=== PATIENT | female | born 1970 | race Caucasian/White ===

== ENCOUNTER 2016-08-27 16:02 | Outpatient (CLI) | payer MEDICAID | END 2016-08-27 16:03 | disposition home or self-care (01) | DX: M18.0 Bilateral primary osteoarthritis of first carpometacarpal joints (principal) ==

== ENCOUNTER 2016-11-26 11:14 | Day surgery (SDC) | payer MEDICAID ==
[2016-11-26] MEDS ORDERED: SODIUM CHLORIDE 0.9% 1,000 ML IV ONE ×2 (12:07)
[2016-11-26] MEDS ORDERED: MORPHINE 2 MG/ML SYRINGE IVP STA ×2 (12:18→15:20)
--- NOTE | 2016-11-26 12:21 | ED Physician Documentation ---
PD HPI ABD PAIN - Stated complaint Stated Complaint: VOMITING - Chief complaint Chief Complaint: Abd Pain - History obtained from History obtained from: Patient - History of Present Illness Timing - onset: Yesterday Timing - duration: Days (2) Timing - details: Gradual onset Pain level max: 10 Pain level now: 4 Quality: Aching, Pain Location: Epigastric, Periumbilical Radiation: Other (non-radiating) Improved by: Vomiting Worsened by: Eating Associated symptoms: Nausea, Vomiting, Vaginal dc (states thick, slight discharge. no burning. no itching). No: Fever, Diarrhea, Constipation, Melena, Hematochezia, Dysuria, Hematuria, Chest pain Recently seen: Clinic (states has been treated for several UTI's recently.) Review of Systems Ten Systems: 10 systems reviewed and negative Constitutional: denies: Fever, Chills GI: denies: Nausea, Vomiting, Diarrhea : denies: Now EGA Skin: denies: Rash Musculoskeletal: denies: Neck pain, Back pain Neurologic: denies: Headache PD PAST MEDICAL HISTORY - Past Medical History Cardiovascular: None Respiratory: None Neuro: None Endocrine/Autoimmune: None GI: GERD, Colon polyps : None HEENT: None Psych: None Musculoskeletal: Chronic back pain Derm: None - Past Surgical History Past Surgical History: Yes General: Colonoscopy 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 - Present Medications Home Medications: Ambulatory Orders Medication Instructions Recorded Confirmed Hydrochlorothiazide 25 mg PO DAILY 01/27/14 11/26/16 Omeprazole [Prilosec] 40 mg PO QDAC 01/27/14 11/26/16 Cyclobenzaprine [Flexeril] 10 mg PO TID PRN 11/26/16 11/26/16 Venlafaxine ER [Effexor ER] 225 mg PO DAILY 11/26/16 11/26/16 - Allergies Allergies/Adverse Reactions: Allergies Allergy/AdvReac Type Severity Reaction Status Date / Time Penicillins AdvReac Intermediate Hives Verified 04/06/15 18:01 Sulfa (Sulfonamide AdvReac Hives Verified 04/06/15 18:01 Antibiotics) - Social History Does the pt smoke?: Yes Smoking Status: Current every day smoker Does the pt drink ETOH?: Yes Does the pt have substance abuse?: No - Immunizations Immunizations are current?: Yes PD ED PE NORMAL - Vitals Vital signs reviewed: Yes - General General: Alert and oriented X 3, No acute distress, Well developed/nourished - HEENT HEENT: PERRL, Moist mucous membranes - Neck Neck: Supple, no meningeal sign - Cardiac Cardiac: RRR, Strong equal pulses - Respiratory Respiratory: No respiratory distress, Clear bilaterally - Abdomen Abdomen: Normal bowel sounds, Soft, Non distended, Other (TTP epigastric without peritoneal signs) - Back Back: No CVA TTP, No spinal TTP - Derm Derm: Warm and dry, No rash - Extremities Extremities: No edema, No calf tenderness / cord - Neuro Neuro: Alert and oriented X 3 - Psych Psych: Normal mood, Normal affect Results - Vitals Vitals: Vital Signs - 24 hr 11/26/16 11/26/16 11/26/16 11:23 13:34 16:56 Temperature 35.9 C L 36.8 C Heart Rate 81 72 71 Respiratory 14 16 16 Rate Blood Pressure 130/77 129/71 150/83 H O2 Saturation 100 100 99 11/26/16 11/26/16 11/26/16 18:20 18:25 18:30 Temperature Heart Rate Respiratory Rate Blood Pressure O2 Saturation 100 97 99 11/26/16 11/26/16 11/26/16 18:35 18:40 18:45 Temperature Heart Rate Respiratory Rate Blood Pressure O2 Saturation 96 14 L 95 11/26/16 11/26/16 11/26/16 18:50 18:55 19:00 Temperature Heart Rate Respiratory Rate Blood Pressure O2 Saturation 94 95 94 11/26/16 11/26/16 11/26/16 19:10 19:20 19:30 Temperature Heart Rate Respiratory Rate Blood Pressure O2 Saturation 92 94 96 11/26/16 19:40 Temperature Heart Rate Respiratory Rate Blood Pressure O2 Saturation 98 Oxygen O2 Source Room air - Labs Labs: Laboratory Tests 11/26/16 11/26/16 11/26/16 12:05 12:34 12:34 WBC 4.4 L RBC 3.92 L Hgb 12.6 Hct 36.7 L MCV 93.6 MCH 32.1 H MCHC 34.3 RDW 14.5 Plt Count 206 MPV 7.8 L Neut # 2.6 Lymph # 1.4 L [place] # 0.3 Eos # 0.0 Baso # 0.0 Absolute Nucleated RBC 0.00 Nucleated RBCs 0.1 Sodium 134 L Potassium 4.5 Chloride 105 Carbon Dioxide 23 Anion Gap 6.0 BUN 9 Creatinine 0.7 Estimated GFR (MDRD) 90 Glucose 104 H Calcium 8.7 Total Bilirubin 0.6 AST 22 ALT 20 Alkaline Phosphatase 62 Total Protein 6.8 Albumin 3.8 Globulin 3.0 Albumin/Globulin Ratio 1.3 Lipase 16 L Urine Color YELLOW Urine Clarity CLEAR Urine pH 7.5 Ur Specific [place] 1.010 Urine Protein NEGATIVE Urine Glucose (UA) NEGATIVE Urine Ketones NEGATIVE Urine Occult Blood NEGATIVE Urine Nitrite NEGATIVE Urine Bilirubin NEGATIVE Urine Urobilinogen 0.2 (NORMAL) Ur Leukocyte Esterase NEGATIVE Ur Microscopic Review NOT INDICATED Urine Culture Comments NOT INDICATED Urine HCG, Qual NEGATIVE - Rads (name of study) CT abd/pelvis Radiology: Prelim report reviewed, EMP read contemporaneously, See rad report ( Small abnormal appearing cystic structure in the expected location of appendix, most likely acute unruptured appendicitis. ) PD MEDICAL DECISION MAKING - ED course Complexity details: reviewed results, re-evaluated patient, considered differential, d/w patient ED course: Patient is a 46-year-old female who presents to the emergency department with abdominal pain, nausea. No appetite since last night. Pain started periumbilical and migrated to the right lower quadrant during her emergency department stay. On repeat evaluation she was tender at McBurney's point, therefore a CT scan of the abdomen was performed which reveals a small abnormal appearing cystic structure in the expected location of the appendix, most likely acute appendicitis. Therefore I consulted general surgery, Dr. Toney who evaluated the patient will take her to the operating room. She was treated with moxifloxacin IV. This document was made in part using voice recognition software. While efforts are made to proofread this document, sound alike and grammatical errors may occur. Departure - Departure Disposition: ED Transfer to [facility] Clinical Impression: Appendicitis Qualifiers: Appendicitis type: acute appendicitis Acute appendicitis type: with localized peritonitis Qualified Code(s): K35.3 - Acute appendicitis with localized peritonitis Condition: Stable Discharge Date/Time: 11/26/16 17:54
[2016-11-26] MEDS ORDERED: MORPHINE 2 MG/ML SYRINGE ONE ×2 (12:26→15:20)
[2016-11-26 12:27] LABS: BILIRUBIN,URINE NEGATIVE (NEGATIVE); PH,URINE 7.5 PH (5.0-7.5)
[2016-11-26 12:30] LABS: HCG UR QUAL NEGATIVE; UA CHARGE (STRIP ONLY) YES; UR CULTURE IF IND NOT INDICATED
[2016-11-26 12:41] LABS: BASOPHILS % (AUTO) 0.5 %; EOSINOPHILS % (AUTO) 0.7 %; HCT - HEMATOCRIT 36.7 % (37.0-47.0); HGB - HEMOGLOBIN 12.6 g/dL (12.0-16.0); LYMPHOCYTES # (AUTO) 1.4 10^3/uL (1.5-3.5); MEAN CORPUSCULAR HEMOGLOBIN 32.1 pg (27.0-31.0); MEAN CORPUSCULAR HGB CONC 34.3 g/dL (32.0-36.0); MEAN CORPUSCULAR VOLUME 93.6 fL (81.0-99.0); MEAN PLATELET VOLUME 7.8 fL (7.9-10.8); MONOCYTES # (AUTO) 0.3 10^3/uL (0.0-1.0); MONOCYTES % (AUTO) 7.3 %; NEUTROPHILS # (AUTO) 2.6 10^3/uL (1.5-6.6); NEUTROPHILS % (AUTO) 59.5 %; NUCLEATED RED BLOOD CELLS AUTO 0.1 /100WBC; RED BLOOD COUNT 3.92 10^6/uL (4.20-5.40); RED CELL DISTRIBUTION WIDTH 14.5 % (12.0-15.0); UNCORRECTED WHITE BLOOD COUNT 4.4 x10^3/uL; WHITE BLOOD COUNT 4.4 x10^3/uL (4.8-10.8)
[2016-11-26 13:21] LABS: ALBUMIN/GLOBULIN RATIO 1.3 (1.0-2.2); BILIRUBIN,TOTAL 0.6 mg/dL (0.2-1.0); CALCIUM 8.7 mg/dL (8.5-10.3); CREATININE 0.7 mg/dL (0.4-1.0); POTASSIUM 4.5 mmol/L (3.5-5.0); TOTAL PROTEIN 6.8 g/dL (6.7-8.2)
--- NOTE | 2016-11-26 15:39 | CT Preliminary Report ---
Exam: CT Abdomen/Pelvis W/ IMPRESSION: Small abnormal appearing cystic structure in the expected location of appendix, most like ly acute unruptured appendicitis. [facility] SITE ID: [id number]
--- NOTE | 2016-11-26 15:41 | CT Report ---
EXAM: CT ABDOMEN AND PELVIS EXAM DATE: 11/26/2016 02:50 PM. CLINICAL HISTORY: RLQ abd pain. COMPARISONS: 12/07/2011. TECHNIQUE: Routine helical CT imaging was performed through the abdomen and pelvis. IV contrast: 100 cc Isovue-300. Enteric contrast: No. Reconstructions: Coronal and sagittal. In accordance with CT protocol optimization, one or more of the following dose reduction techniques w ere utilized for this exam: automated exposure control, adjustment of mA and/or KV based on patient s ize, or use of iterative reconstructive technique. FINDINGS: Lung Bases: Unremarkable. Liver: Normal. No masses. Gallbladder/Bile Ducts: Unremarkable. Spleen: Normal. Pancreas: Normal. Adrenal Glands: Normal. Kidneys: Normal. No masses or hydronephrosis. Peritoneal Cavity/Bowel: A fluid-filled structure measuring as much as 10 mm in diameter on axial nevin ge 64 is at the expected location of appendix with a second less well-defined but similar sized struc ture adjacent to it, possibly representing abnormal appendix folded over itself; normal appendix was visible at this location in the previous study. No definite infiltration of adjacent fat. No free flu id, free air, or lymphadenopathy. Pelvic Organs: Normal. The bladder and visualized pelvic organs are within normal limits. Vasculature: No aneurysms or other significant abnormality. Bones: No significant abnormality. Other: None. IMPRESSION: Small abnormal appearing cystic structure in the expected location of appendix, most like ly acute unruptured appendicitis. [facility] Referring Provider Line: [phone] SITE ID: [id number]
[2016-11-26] MEDS ORDERED: MOXIFLOXACIN 400MG/250ML IV 250 ML IV STA (15:56)
[2016-11-26] MEDS ORDERED: LORazepam 2 MG/ML SYRINGE IVP STA (16:27)
[2016-11-26] MEDS ORDERED: LORazepam 2 MG/ML SYRINGE ONE (16:47)
[2016-11-26 16:56] VITALS: BP 150/83
[2016-11-26] MEDS ORDERED: metroNIDAZOLE 500 MG/100 ML 100 ML ONE (17:09)
[2016-11-26] MEDS ORDERED: IOPAMIDOL-300 100 ML VIAL IVP ONE (17:19)
[2016-11-26] MEDS ORDERED: BUPIVACAINE 0.5%-EPI 1:200000 PF 30 ML VIAL SUBQ ONE ×3 (17:48)
[2016-11-26] MEDS ORDERED: LACTATED RINGERS 1,000 ML IV ONE ×2 (17:48→18:44)
[2016-11-26] MEDS ORDERED: GLYCOPYRROLATE 1 MG/5 ML VIAL IVP ONE (17:56)
[2016-11-26] MEDS ORDERED: PROPOFOL 200 MG/20 ML VIAL IVP ONE (17:56)
[2016-11-26] MEDS ORDERED: KETOROLAC 30 MG/ML VIAL IVP ONE (17:56)
[2016-11-26] MEDS ORDERED: SUCCINYLCHOLINE 200 MG/10 ML VIAL IVP ONE (17:56)
[2016-11-26] MEDS ORDERED: LIDOCAINE-MPF 2% 5 ML VIAL IM ONE (17:56)
[2016-11-26] MEDS ORDERED: MIDAZOLAM 2 MG/2 ML VIAL IVP ONE (17:56)
[2016-11-26] MEDS ORDERED: DEXAMETHASONE 4 MG/ML VIAL IVP ONE (17:56)
[2016-11-26] MEDS ORDERED: ONDANSETRON 4 MG/2 ML VIAL IVP ONE (17:56)
[2016-11-26] MEDS ORDERED: fentaNYL 100 MCG/2 ML VIAL IVP ONE (17:56)
[2016-11-26] MEDS ORDERED: NEOSTIGMINE 1 MG/1 ML 10 ML MDV IVP ONE (17:56)
[2016-11-26] MEDS ORDERED: PROMETHAZINE 25 MG/1 ML VIAL ONE (18:21)
[2016-11-26] MEDS: HYDROmorphone 1 MG/ML SYRINGE ONE ×2 (18:28→18:48)
[2016-11-26] MEDS: fentaNYL 100 MCG/2 ML VIAL ONE ×2 (18:57→19:12)
[2016-11-26] MEDS ORDERED: diphenhydrAMINE INJ 50 MG/ML VIAL ONE (19:21)
[2016-11-26] MEDS ORDERED: HYDROcod/ACETAM 5/325 MG TABLET PO PRN (20:13)
[2016-11-26] MEDS ORDERED: ONDANSETRON 4 MG/2 ML VIAL IVP PRN (20:13)
[2016-11-26] MEDS ORDERED: LACTATED RINGERS 1,000 ML IV SCH (21:00)
--- NOTE | 2016-11-27 02:19 | OPERATIVE REPORT ---
DATE OF SURGERY: 11/26/2016 00:00:00 PREOPERATIVE DIAGNOSIS: Acute abdominal pain. POSTOPERATIVE DIAGNOSES 1. Abdominal pain secondary to ruptured left ovarian cyst with hemoperitoneum. 2. Right ovarian cyst. OPERATIONS PERFORMED 1. Diagnostic laparoscopy. 2. Incidental appendectomy. OPERATING SURGEON: Claudio Toney MD. ANESTHESIA: General. INDICATION FOR PROCEDURE: The patient is a 46-year-old female who presents with acute onset less than 24 hours of abdominal pain. It first started at periumbilical and then moved to the right lower quadrant. She had a CT scan of the abdomen and pelvis, which revealed a dilated appendix at 10 mm consistent with acute appendicitis. Her white blood cell count was 4. On physical exam, she had mild tenderness in right lower quadrant. FINDINGS AT SURGERY: The patient had a normal appearing appendix. The patient had bilateral ovarian cysts with stigma of recent rupture, nonbleeding left ovary. The patient's small bowel was run and there was no ligament of Treitz being present. There is a small to moderate amount of blood in the pelvis and right gutter. PROCEDURE: After informed consent was obtained, the patient was taken to the operating room and placed in the supine position. General endotracheal anesthesia was administered. The patient's abdomen was then prepped and draped in the usual sterile fashion prior to making any abdominal incisions. The skin was injected with 0.5% Marcaine. An infraumbilical incision was made in the skin using a scalpel. A 5 mm Optiview trocar was then inserted through the incision through the fascia and into the abdominal cavity. The abdomen was then insufflated. Looking inside, no injuries were noted. Two 5 mm ports were then placed in the right and left lower quadrants with the 5 mm port at the umbilicus switched to a 12 mm. Appendix appeared to be normal. The patient did have hemoperitoneum being present in the pelvis. The ovaries were looked at. She had a small ovary on the right and left side. On the left side, there was a stigmata of recent bleed, but no ongoing bleeding from the ovarian cyst. It was then decided upon to do an incidental appendectomy since it was abnormal on CT scan and to ensure no further diagnostic problems in the future. An opening was then made in the mesentery of the appendix at its base. An Endo GI was then placed across the base of the appendix stapling and dividing it. A second Endo GI was then placed across the mesentery of the appendix stapling and dividing it. The appendix was then placed in an Endo bag and removed through the umbilical port. Looking in the right lower quadrant, no bleeding was noted. The pelvis was then irrigated until the return fluid was clear. The ports were then removed and no bleeding was noted at the port sites, with the abdomen then being desufflated. The umbilica fascial defect was closed using #0 Vicryl suture. The skin incisions were closed using 4-0 Monocryl subcuticular stitch. Dermabond was then applied. The patient was then awakened, extubated, and taken from the operating room in stable condition. ESTIMATED BLOOD LOSS: Less than 5 mL. COMPLICATIONS: None. CONDITION OF THE PATIENT AT THE END OF THE PROCEDURE: Stable. SPECIMENS: Appendix. DRAINS/PACKS: None. CLASSIFICATION: The wound is clean. JOB #: [id number] EXT JOB #:[id number] NANCY
--- NOTE | 2016-11-27 08:00 | HISTORY & PHYSICAL EXAMINATION ---
DATE OF ADMISSION: 11/26/2016 REASON FOR ADMISSION: Abdominal pain. HISTORY OF PRESENT ILLNESS: This patient is a 46-year-old female who presents with less than a 24-deidra r history of abdominal pain. It first started at periumbilical and has now moved to the right lower q uadrant. She has had some nausea and vomiting. She denies any diarrhea or constipation. She denies an y fevers. Because of the pain she came to the emergency room to be evaluated. PAST SURGICAL HISTORY: 1. Tubal ligation. 2. Multiple orthopaedic surgeries of left leg. 3. Nasal sinus surgery. ALLERGIES: 1. PENICILLIN. 2. SULFA. MEDICATIONS: 1. Effexor. 2. Hydrochlorothiazide. 3. Prilosec. 4. Flexeril. SOCIAL HISTORY: The patient lives with boyfriend. FAMILY HISTORY: Noncontributory. REVIEW OF SYSTEMS: GENERAL: Not feeling well. GASTROINTESTINAL: Abdominal pain, nausea, and vomiting. GENITOURINARY: She recently just got over a urinary infection treated with antibiotics. PHYSICAL EXAMINATION: VITAL SIGNS: Temperature is 35.9, heart rate 81, blood pressure 130/77. GENERAL: The patient is lying in bed. She is cooperative and not in any distress. EYES: Anicteric. NECK: No lymphadenopathy. HEART: Regular. LUNGS: Clear. BACK: Nontender. ABDOMEN: Soft, mild tenderness in right lower quadrant. No rebound. No peritoneal signs. No hernias. EXTREMITIES: No edema or cyanosis. NEUROLOGICAL: The patient appears to be neurologically intact without any deficits. PSYCHOLOGICAL: The patient is coherent, cooperative, and appears to answer questions fully. LABS: White blood cell count of 4.4. CT scan of the abdomen and pelvis shows a dilated appendix at 10 mm consistent with appendicitis. ASSESSMENT: Acute abdomen. Clinically and radiographically the patient has appendicitis. I have recom mended she undergo a laparoscopic appendectomy and possible laparotomy. The risks and possible compli cations of the procedure have been explained to her. She accepts the risks and wishes to proceed with the procedure. PLAN: 1. The patient will be admitted to observation. 2. NPO. 3. IV fluids. 4. IV antibiotics. 5. Laparoscopic appendectomy, possible laparotomy. JOB #: [id number] EXT JOB #:[id number]
== END 2016-11-26 21:20 | disposition home or self-care (01) ==
LOC: ED 11:14 → SDS 16:30 → MS 20:21 → SDS 21:20
PROVIDERS: ATTEND Surgery
PROC: 0DTJ4ZZ Resection of Appendix, Percutaneous Endoscopic Approach (ICD-10-PCS; 2016-11-26)
PROC: 0WJJ4ZZ Inspection of Pelvic Cavity, Percutaneous Endoscopic Approach (ICD-10-PCS; principal; 2016-11-26 17:00)
DX: N83.202 Unspecified ovarian cyst, left side (principal); N83.201 Unspecified ovarian cyst, right side; K66.1 Hemoperitoneum; R93.3 Abnormal findings on diagnostic imaging of other parts of digestive tract; K21.9 Gastro-esophageal reflux disease without esophagitis; I10 Essential (primary) hypertension; G89.29 Other chronic pain; M54.9 Dorsalgia, unspecified; F17.200 Nicotine dependence, unspecified, uncomplicated; Z88.0 Allergy status to penicillin; Z88.2 Allergy status to sulfonamides
CPT/HCPCS: 36415; 44970; 74177; 80053; 81003; 81025; 83690; 85025; 99284; A9270; J1170; J2060; J7120; Q9967; 81001; 87086; 88304

== ENCOUNTER 2016-12-16 12:01 | Emergency (ER) | payer MEDICAID ==
[2016-12-16 12:12] VITALS: BP 143/89
== END 2016-12-16 14:31 | disposition left against medical advice (07) ==
LOC: ED 12:01
DX: Z53.21 Procedure and treatment not carried out due to patient leaving prior to being seen by health care provider (principal)
CPT/HCPCS: 96374; 96375; 96376; 99284

== ENCOUNTER 2016-12-16 19:28 | Emergency (ER) | payer MEDICAID ==
--- NOTE | 2016-12-16 20:08 | ED Physician Documentation ---
PD HPI ABD PAIN - Stated complaint Stated Complaint: ABD PX/NAUSEA--S/P SURGERY - Chief complaint Chief Complaint: Abd Pain - History obtained from History obtained from: Patient - History of Present Illness Timing - onset: How many days ago (2) Timing - details: Constant, Waxing and waning Pain level now: 8 Quality: Pain Location: Other (across lower abdomen, L>R) Radiation: Other (no radiation) Improved by: Laying still Worsened by: Moving, Palpation Associated symptoms: Fever (subjective (did not take temperature at home, felt like she had a fever per patient)), Nausea, Vomiting. No: Dysuria Recently seen: Surgery - Additional information Additional information: patient went for appendectomy 11/26 (and, per operative note, the appendix was removed). However, operative note indicates the appendix appeared normal and that there were findings that suggested ruptured ovarian (hemorragic) cyst. Patient presents c/o 2 days of abdominal pain, saw PMD today and, per patient, PMD recommended she come to this ED for evaluation. Patient initially was here this morning but felt it was too busy and thus went home, returns at this time with same abd. pain c/o. Patient says she has had some degree of pain since the surgery. Also past 48 hours c/o nausea, vomiting, subjective fever (feels like she's been having fevers but has not taken her temperature at home). Review of Systems Constitutional: reports: Fever (subjective), Chills, Sweats Cardiac: reports: Reviewed and negative Respiratory: reports: Reviewed and negative GI: reports: Abdominal Pain, Nausea, Vomiting. 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 - Present Medications Home Medications: Ambulatory Orders Medication Instructions Recorded Confirmed Hydrochlorothiazide 25 mg PO DAILY 01/27/14 12/16/16 Omeprazole [Prilosec] 40 mg PO DAILY 01/27/14 12/16/16 Cyclobenzaprine [Flexeril] 10 mg PO TID PRN 11/26/16 12/16/16 Venlafaxine ER [Effexor ER] 225 mg PO DAILY 11/26/16 12/16/16 oxyCODONE/ACET 5/325 [Percocet 5 1 - 2 each PO Q6H PRN #6 tablet 12/16/16 mg/325 mg] - Allergies Allergies/Adverse Reactions: Allergies Allergy/AdvReac Type Severity Reaction Status Date / Time Penicillins AdvReac Intermediate Hives Verified 12/16/16 12:12 ciprofloxacin [From Cipro] AdvReac Edema Verified 12/16/16 12:12 ciprofloxacin HCl * AdvReac Edema Verified 12/16/16 12:12 [From Cipro] Sulfa (Sulfonamide AdvReac Hives Verified 12/16/16 12:12 Antibiotics) - Social History Does the pt smoke?: Yes Smoking Status: Current every day smoker Does the pt drink ETOH?: Yes Does the pt have substance abuse?: No - Immunizations Immunizations are current?: Yes PD ED PE NORMAL - Vitals Vital signs reviewed: Yes - General General: Alert and oriented X 3, No acute distress (NAD at rest), Well developed /nourished - HEENT HEENT: Moist mucous membranes - Cardiac Cardiac: RRR, No murmur - Respiratory Respiratory: No respiratory distress, Clear bilaterally - Abdomen Abdomen: Soft - Back Back: No CVA TTP - Derm Derm: Normal color, Warm and dry - Extremities Extremities: No edema PD ED PE EXPANDED - Abdomen Abdomen: Tender to palpation (across lower abdomen, suprapubic>LLQ>RLQ. there is mild tenderness across upper abdomen, less than lower. no rebound or guarding ) Results - Vitals Vitals: Vital Signs - 24 hr 12/16/16 12/16/16 19:34 23:39 Temperature 35.8 C L 36.0 C L Heart Rate 75 63 Respiratory 20 18 Rate Blood Pressure 146/89 H 156/91 H O2 Saturation 100 99 Oxygen O2 Source Room air - Labs Labs: Laboratory Tests 12/16/16 12/16/16 12/16/16 20:39 20:39 20:40 WBC 4.2 L RBC 4.00 L Hgb 12.6 Hct 38.0 MCV 95.0 MCH 31.4 H MCHC 33.1 RDW 14.2 Plt Count 256 MPV 8.0 Neut # 1.7 Lymph # 2.0 [place] # 0.5 Eos # 0.0 Baso # 0.0 Absolute Nucleated RBC 0.00 Nucleated RBCs 0.0 Sodium 139 Potassium 3.6 Chloride 105 Carbon Dioxide 26 Anion Gap 8.0 BUN 12 Creatinine 0.8 Estimated GFR (MDRD) 77 L Glucose 117 H Calcium 9.0 Total Bilirubin 0.5 AST 30 ALT 28 Alkaline Phosphatase 70 Total Protein 6.7 Albumin 3.7 Globulin 3.0 Albumin/Globulin Ratio 1.2 Lipase 26 Urine Color YELLOW Urine Clarity CLEAR Urine pH 6.0 Ur Specific [place] <=1.005 Urine Protein NEGATIVE Urine Glucose (UA) NEGATIVE Urine Ketones NEGATIVE Urine Occult Blood TRACE-LYSE Urine Nitrite NEGATIVE Urine Bilirubin NEGATIVE Urine Urobilinogen 0.2 (NORMAL) Ur Leukocyte Esterase NEGATIVE Ur Microscopic Review NOT INDICATED Urine Culture Comments NOT INDICATED - Rads (name of study) CT A/P Radiology: Prelim report reviewed, See rad report PD MEDICAL DECISION MAKING - ED course Complexity details: reviewed results, re-evaluated patient, considered differential, d/w patient Departure - Departure Disposition: 01 Home, Self Care Clinical Impression: Abdominal pain Condition: Good Instructions: ED Abdominal Pain Unkn Cause Prescriptions: oxyCODONE/ACET 5/325 [Percocet 5 mg/325 mg] 1 - 2 each PO Q6H PRN #6 tablet PRN Reason: Pain Comments: Follow up with your vice president compliance and your surgeon as scheduled Discharge Date/Time: 12/17/16 00:30
[2016-12-16] MEDS ORDERED: ONDANSETRON 4 MG/2 ML VIAL IVP STA (20:25)
[2016-12-16] MEDS ORDERED: SODIUM CHLORIDE 0.9% 1,000 ML IV STA (20:25)
[2016-12-16] MEDS ORDERED: HYDROmorphone 1 MG/ML SYRINGE IVP STA ×2 (20:25→22:08)
[2016-12-16] MEDS ORDERED: ONDANSETRON 4 MG/2 ML VIAL ONE (20:50)
[2016-12-16] MEDS ORDERED: HYDROmorphone 1 MG/ML SYRINGE ONE ×2 (20:50→22:18)
[2016-12-16 21:13] LABS: BILIRUBIN,URINE NEGATIVE (NEGATIVE)
[2016-12-16 21:16] LABS: BASOPHILS % (AUTO) 0.6 %; EOSINOPHILS % (AUTO) 0.7 %; HGB - HEMOGLOBIN 12.6 g/dL (12.0-16.0); LYMPHOCYTES % (AUTO) 47.8 %; MEAN CORPUSCULAR HEMOGLOBIN 31.4 pg (27.0-31.0); MEAN CORPUSCULAR HGB CONC 33.1 g/dL (32.0-36.0); MONOCYTES # (AUTO) 0.5 10^3/uL (0.0-1.0); MONOCYTES % (AUTO) 11.3 %; NEUTROPHILS # (AUTO) 1.7 10^3/uL (1.5-6.6); NEUTROPHILS % (AUTO) 39.6 %; RED CELL DISTRIBUTION WIDTH 14.2 % (12.0-15.0); UNCORRECTED WHITE BLOOD COUNT 4.2 x10^3/uL; WHITE BLOOD COUNT 4.2 x10^3/uL (4.8-10.8)
[2016-12-16 21:29] LABS: ALBUMIN/GLOBULIN RATIO 1.2 (1.0-2.2); BILIRUBIN,TOTAL 0.5 mg/dL (0.2-1.0); CREATININE 0.8 mg/dL (0.4-1.0); POTASSIUM 3.6 mmol/L (3.5-5.0); TOTAL PROTEIN 6.7 g/dL (6.7-8.2)
[2016-12-16 21:30] LABS: UA CHARGE (STRIP ONLY) YES; UR CULTURE IF IND NOT INDICATED
[2016-12-16] MEDS ORDERED: IOPAMIDOL-300 100 ML VIAL IVP ONE (21:51)
[2016-12-16] MEDS ORDERED: PROMETHAZINE INJ 25 MG in SODIUM CHLORIDE 0.9% 50 ML IV STA (22:07)
[2016-12-16] MEDS ORDERED: PROMETHAZINE 25 MG/1 ML VIAL ONE (22:18)
--- NOTE | 2016-12-16 22:34 | CT Preliminary Report ---
Exam: CT Abdomen/Pelvis W/ IMPRESSION: 1. No acute findings. [facility] SITE ID: [id number]
--- NOTE | 2016-12-16 22:37 | CT Report ---
EXAM: CT ABDOMEN AND PELVIS EXAM DATE: 12/16/2016 09:58 PM. CLINICAL HISTORY: Abdominal pain. Ovarian cyst surgery 2 weeks ago, pain last few days COMPARISONS: Abdomen and pelvis CT 11/26/2016. TECHNIQUE: Routine helical CT imaging was performed through the abdomen and pelvis. IV contrast: 100 mL Isovue 300. Enteric contrast: No. Reconstructions: Coronal and sagittal. In accordance with CT protocol optimization, one or more of the following dose reduction techniques w ere utilized for this exam: automated exposure control, adjustment of mA and/or KV based on patient s ize, or use of iterative reconstructive technique. FINDINGS: Lung Bases: No acute findings. Liver: Normal. No masses. Gallbladder/Bile Ducts: Unremarkable. Spleen: Normal. Pancreas: Normal. Adrenal Glands: Normal. Kidneys: Lobular contour of the kidneys again noted. Renal scars could be present. No hydronephrosis. Peritoneal Cavity/Bowel: Normal. No free fluid, free air or adenopathy. No masses or acute inflammato ry process. Status post appendectomy. Pelvic Organs: Normal. The bladder and visualized pelvic organs are within normal limits. Surgical cl ip at the left adnexa. The uterus and ovaries appear within normal limits. Vasculature: No acute findings Bones: No acute bone findings IMPRESSION: 1. No acute findings. [facility] Referring Provider Line: [phone] SITE ID: [id number]
[2016-12-16 23:39] VITALS: BP 156/91
[2016-12-16] MEDS ORDERED: oxyCODONE/ACET 5/325 Prepack 4 PO STA (23:40)
[2016-12-17] MEDS ORDERED: oxyCODONE/ACET 5/325 Prepack 4 PO ONE (00:04)
== END 2016-12-17 00:30 | disposition home or self-care (01) ==
LOC: ED 19:28
DX: R10.30 Lower abdominal pain, unspecified (principal); R11.2 Nausea with vomiting, unspecified; K21.9 Gastro-esophageal reflux disease without esophagitis; Z86.010 Personal history of colon polyps; F17.200 Nicotine dependence, unspecified, uncomplicated
CPT/HCPCS: 36415; 74177; 80053; 81003; 83690; 85025; 96374; 96375; 96376; 99283; 99284; J1170; J7040; Q9967; 81001; 87086

== ENCOUNTER 2016-12-19 21:05 | Outpatient (CLI) | payer MEDICAID ==
--- NOTE | 2016-12-19 22:44 | Ultrasound Preliminary Report ---
Exam: US Pelvic w/Transvaginal IMPRESSION: Normal pelvic ultrasound. [facility] SITE ID: [id number]
--- NOTE | 2016-12-19 22:47 | Ultrasound Report ---
EXAM: PELVIC ULTRASOUND EXAM DATE: 12/19/2016 09:18 PM. CLINICAL HISTORY: Lower abdominal pain, bilateral ovarian cysts. COMPARISON: CT abdomen and pelvis 12/16/2016. TECHNIQUE: Realtime transabdominal pelvic scan performed to identify the uterus and adnexa and as an overview of other pelvic structures, followed by transvaginal scan to provide greater detail of the u terus and adnexa, with static image documentation. FINDINGS: Uterus: 6.4 x 3.1 x 4.4 cm, volume 46.2 cc. Anteverted position. Normal overall size and echotexture. Masses: None. Endometrium: 4 mm. Normal. Cervix: Unremarkable. Right Ovary: 2.2 x 0.7 x 1.1 cm, volume 0.9 cc. Appears within normal limits. Left Ovary: 2.1 x 1.3 x 1.3 cm, volume 1.8 cc. Appears within normal limits. Free Fluid: None. Other: None. IMPRESSION: Normal pelvic ultrasound. [facility] Referring Provider Line: [phone] SITE ID: [id number]
== END 2016-12-19 21:06 | disposition home or self-care (01) ==
LOC: DI 21:05
PROVIDERS: ATTEND Surgery
DX: R10.9 Unspecified abdominal pain (principal)
CPT/HCPCS: 76830; 76856

== ENCOUNTER 2016-12-26 11:58 | Outpatient (CLI) | payer MEDICAID | END 2016-12-26 11:59 | disposition home or self-care (01) | LOC: LAB 11:58 | PROVIDERS: ATTEND Surgery | DX: R10.9 Unspecified abdominal pain (principal); R11.2 Nausea with vomiting, unspecified | CPT/HCPCS: 36415; 85651; 86140 ==

== ENCOUNTER 2017-01-12 04:32 | Emergency (ER) | payer MEDICAID ==
--- NOTE | 2017-01-12 04:47 | ED Physician Documentation ---
PD HPI ABD PAIN - Stated complaint Stated Complaint: ABD PX - Chief complaint Chief Complaint: Abd Pain - History obtained from History obtained from: Patient - History of Present Illness Timing - onset: How many weeks ago (6) Timing - duration: Weeks Timing - details: Gradual onset, Intermittant Pain level now: 6 Quality: Pain Location: RLQ Radiation: Other (across lower abdomen) Improved by: Laying still Worsened by: Moving, Palpation Associated symptoms: Nausea, Vomiting, Diarrhea. No: Fever Recently seen: Emergency Dept - Additional information Additional information: presented with RLQ pain 11/26/16 to this ED, had appendectomy. Returned to this ED 12/16 c/o ongoing lower abdominal pain. Unremarkable w/u on this f/u visit. She was then seen outpatient a few days later and had unremarkable outpatient pelvic US. She returns at this time c/o ongoing lower abdominal pain since having the surgery last month. She says she spends "days in a row in bed" due to the pain, has intermittent nausea and vomiting as well as episodic diarrhea. Review of Systems Constitutional: reports: Fatigue. 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 - Present Medications Home Medications: Ambulatory Orders Medication Instructions Recorded Confirmed Hydrochlorothiazide 25 mg PO DAILY 01/27/14 12/16/16 Omeprazole [Prilosec] 40 mg PO DAILY 01/27/14 12/16/16 Cyclobenzaprine [Flexeril] 10 mg PO TID PRN 11/26/16 12/16/16 Venlafaxine ER [Effexor ER] 225 mg PO DAILY 11/26/16 12/16/16 oxyCODONE/ACET 5/325 [Percocet 5 1 - 2 each PO Q6H PRN #6 tablet 12/16/16 mg/325 mg] Diphenoxylate/Atropine [Lomotil] 1 each PO QID PRN #14 tablet 01/12/17 oxyCODONE/ACET 5/325 [Percocet 5 1 - 2 each PO Q6H PRN #20 tablet 01/12/17 mg/325 mg] - Allergies Allergies/Adverse Reactions: Allergies Allergy/AdvReac Type Severity Reaction Status Date / Time Penicillins AdvReac Intermediate Hives Verified 01/12/17 04:36 ciprofloxacin [From Cipro] AdvReac Edema Verified 01/12/17 04:36 ciprofloxacin HCl * AdvReac Edema Verified 01/12/17 04:36 [From Cipro] Sulfa (Sulfonamide AdvReac Hives Verified 01/12/17 04:36 Antibiotics) - Social History Does the pt smoke?: Yes Smoking Status: Current every day smoker Does the pt drink ETOH?: Yes Does the pt have substance abuse?: No - Immunizations Immunizations are current?: Yes PD ED PE NORMAL - Vitals Vital signs reviewed: Yes - General General: Alert and oriented X 3, No acute distress, Well developed/nourished - Cardiac Cardiac: RRR, No murmur - Respiratory Respiratory: No respiratory distress, Clear bilaterally - Abdomen Abdomen: Soft, Non tender - Back Back: No CVA TTP - Derm Derm: Normal color, Warm and dry, No rash - Extremities Extremities: No edema PD ED PE EXPANDED - Abdomen Abdomen: Tender to palpation, RLQ, Suprapubic. No: Rebound, Guarding Results - Vitals Vitals: Oxygen O2 Source Room air - Labs Labs: Laboratory Tests 01/12/17 01/12/17 01/12/17 05:35 05:45 05:45 WBC 5.0 RBC 4.14 L Hgb 12.9 Hct 39.2 MCV 94.7 MCH 31.3 H MCHC 33.0 RDW 14.2 Plt Count 226 MPV 8.6 Neut # 2.2 Lymph # 2.2 [place] # 0.5 Eos # 0.1 Baso # 0.1 Absolute Nucleated RBC 0.00 Nucleated RBCs 0.0 Sodium 138 Potassium 4.1 Chloride 107 Carbon Dioxide 26 Anion Gap 5.0 L BUN 16 Creatinine 0.7 Estimated GFR (MDRD) 89 Glucose 95 Calcium 9.1 Total Bilirubin 0.2 AST 20 ALT 18 Alkaline Phosphatase 59 Total Protein 6.9 Albumin 4.1 Globulin 2.8 Albumin/Globulin Ratio 1.5 Lipase 33 Urine Color LT. YELLOW Urine Clarity CLEAR Urine pH 6.0 Ur Specific [place] <=1.005 Urine Protein NEGATIVE Urine Glucose (UA) NEGATIVE Urine Ketones NEGATIVE Urine Occult Blood TRACE-LYSE Urine Nitrite NEGATIVE Urine Bilirubin NEGATIVE Urine Urobilinogen 0.2 (NORMAL) Ur Leukocyte Esterase NEGATIVE Ur Microscopic Review NOT INDICATED Urine Culture Comments NOT INDICATED Urine HCG, Qual NEGATIVE - Rads (name of study) pelvic US Radiology: Prelim report reviewed, See rad report PD MEDICAL DECISION MAKING - ED course Complexity details: reviewed results, re-evaluated patient, considered differential, d/w patient ED course: On reevaluation, patient is resting comfortably. There is residual tenderness across lower abdomen but it is milder than initial (presenting) exam. She is comfortable with plan to d/c, has f/u arranged with PMD for later this coming week. Departure - Departure Disposition: 01 Home, Self Care Clinical Impression: Abdominal pain Qualifiers: Abdominal location: right lower quadrant Qualified Code(s): R10.31 - Right lower quadrant pain Condition: Good Instructions: ED Abdominal Pain Unkn Cause Follow-Up: Cecy Smith ARNP [Primary Care Provider] - Prescriptions: Diphenoxylate/Atropine [Lomotil] 1 each PO QID PRN #14 tablet PRN Reason: Diarrhea oxyCODONE/ACET 5/325 [Percocet 5 mg/325 mg] 1 - 2 each PO Q6H PRN #20 tablet PRN Reason: Pain Discharge Date/Time: 01/12/17 08:50
[2017-01-12] MEDS ORDERED: HYDROmorphone 1 MG/ML SYRINGE IVP STA ×3 (05:34→08:35)
[2017-01-12] MEDS ORDERED: SODIUM CHLORIDE 0.9% 1,000 ML IV STA (05:34)
[2017-01-12] MEDS ORDERED: ONDANSETRON 4 MG/2 ML VIAL IVP STA (05:34)
[2017-01-12] MEDS ORDERED: HYDROmorphone 1 MG/ML SYRINGE ONE ×3 (05:42→08:39)
[2017-01-12] MEDS ORDERED: ONDANSETRON 4 MG/2 ML VIAL ONE (05:42)
[2017-01-12 05:43] LABS: BILIRUBIN,URINE NEGATIVE (NEGATIVE)
[2017-01-12 05:45] LABS: HCG UR QUAL NEGATIVE; UA CHARGE (STRIP ONLY) YES; UR CULTURE IF IND NOT INDICATED
[2017-01-12 06:03] LABS: BASOPHILS # (AUTO) 0.1 10^3/uL (0.0-0.1); BASOPHILS % (AUTO) 1.3 %; EOSINOPHILS # (AUTO) 0.1 10^3/uL (0.0-0.7); EOSINOPHILS % (AUTO) 1.7 %; HCT - HEMATOCRIT 39.2 % (37.0-47.0); HGB - HEMOGLOBIN 12.9 g/dL (12.0-16.0); LYMPHOCYTES # (AUTO) 2.2 10^3/uL (1.5-3.5); LYMPHOCYTES % (AUTO) 44.1 %; MEAN CORPUSCULAR HEMOGLOBIN 31.3 pg (27.0-31.0); MEAN CORPUSCULAR VOLUME 94.7 fL (81.0-99.0); MEAN PLATELET VOLUME 8.6 fL (7.9-10.8); MONOCYTES # (AUTO) 0.5 10^3/uL (0.0-1.0); MONOCYTES % (AUTO) 9.2 %; NEUTROPHILS # (AUTO) 2.2 10^3/uL (1.5-6.6); NEUTROPHILS % (AUTO) 43.7 %; RED BLOOD COUNT 4.14 10^6/uL (4.20-5.40); RED CELL DISTRIBUTION WIDTH 14.2 % (12.0-15.0)
[2017-01-12 06:12] LABS: ALBUMIN/GLOBULIN RATIO 1.5 (1.0-2.2); BILIRUBIN,TOTAL 0.2 mg/dL (0.2-1.0); CALCIUM 9.1 mg/dL (8.5-10.3); CREATININE 0.7 mg/dL (0.4-1.0); POTASSIUM 4.1 mmol/L (3.5-5.0); TOTAL PROTEIN 6.9 g/dL (6.7-8.2)
[2017-01-12] MEDS ORDERED: SODIUM CHLORIDE FLUSH 0.9% 10 ML SYRINGE IVP ONE (07:52)
--- NOTE | 2017-01-12 08:28 | Ultrasound Preliminary Report ---
Exam: US Pel Non OB w/TV + Dop IMPRESSION: Simple left ovarian cyst with dominant follicle in the right ovary. Otherwise, unremarkab le exam. [facility] SITE ID: [id number]
--- NOTE | 2017-01-12 08:30 | Ultrasound Report ---
EXAM: PELVIC ULTRASOUND EXAM DATE: 01/12/2017 08:01 AM. CLINICAL HISTORY: Right pelvic pain. COMPARISON: 12/19/2016. TECHNIQUE: Realtime transabdominal pelvic scan performed to identify the uterus and adnexa and as an overview of other pelvic structures, patient refused transvaginal portion of exam with static image d ocumentation. FINDINGS: Uterus: 7.7 x 3.4 x 4.4 cm, volume 60 cc. Anteverted position. Normal overall size and echotexture. Masses: None. Endometrium: 3 mm. Normal. Cervix: Cervical nabothian cysts noted. Right Ovary: 2.3 x 0.9 x 1.4 cm, volume 1.4 cc. Normal echotexture and blood flow. Dominant follicle is noted measuring up to 6 mm. Left Ovary: 2.6 x 1.6 x 1.6 cm, volume 3.5 cc. Normal echotexture and blood flow. A simple cyst is no karen measuring up to 12 mm. Free Fluid: None. Other: None. IMPRESSION: Simple left ovarian cyst with dominant follicle in the right ovary. Otherwise, unremarkab le exam. [facility] Referring Provider Line: [phone] SITE ID: [id number]
[2017-01-12 08:47] VITALS: BP 121/68
== END 2017-01-12 08:50 | disposition home or self-care (01) ==
LOC: ED 04:32
DX: O26.891 Other specified pregnancy related conditions, first trimester (principal); R10.31 Right lower quadrant pain; O99.331 Smoking (tobacco) complicating pregnancy, first trimester; Z3A.01 Less than 8 weeks gestation of pregnancy
CPT/HCPCS: 36415; 76830; 76856; 80053; 81003; 81025; 83690; 85025; 93975; 96374; 96375; 96376; 99284; J1170; 81001; 87086

== ENCOUNTER 2017-05-10 11:08 | Emergency (ER) | payer MEDICAID ==
[2017-05-10] MEDS ORDERED: SODIUM CHLORIDE 0.9% 1,000 ML IV ONE (12:02)
--- NOTE | 2017-05-10 12:13 | ED Physician Documentation ---
PD HPI GI BLEED - Stated complaint Stated Complaint: BLOODY STOOL - Chief complaint Chief Complaint: Abd Pain - History obtained from History obtained from: Patient, Family - History of Present Illness Timing - onset: Last night Timing - duration: Hours Timing - details: Gradual onset, Still present Associated symptoms: BRBPR Contributing factors: Other (chronic RLQ pain) Improved by: Other (nothing) Worsened by: Other (nothing) Similar symptoms before: Has not had sx before Recently seen: Not recently seen - Additional information Additional information: 47-year-old female who has had some right lower quadrant abdominal pain chronically for the past 6 months got up to go to the bathroom at 2:00 in the morning and she had multiple trips to the bathroom throughout the night. She does not usually turn on the light at night and this morning when she went to look at the stool she realized that it was blood and the blood clotted and was in the bottom of the commode. She states that she had 3 liquid BMs through the night. She had these with some urgency. She does feel lightheaded and dizzy. The patient relates that she had her appendix taken out over the summer when she had an episode of pain in her right lower quadrant and this pain has never gone away. She did not have appendicitis at this time. Review of Systems Constitutional: reports: Fatigue (For about 1 month). denies: Fever Eyes: denies: Loss of vision Ears: denies: Ear pain Nose: denies: Rhinorrhea / runny nose, Congestion Throat: denies: Sore throat Cardiac: denies: Chest pain / pressure Respiratory: denies: Dyspnea, Cough GI: reports: Abdominal Pain, Bloody / black stool. 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 - Present Medications Home Medications: Ambulatory Orders Medication Instructions Recorded Confirmed Omeprazole [Prilosec] 40 mg PO DAILY 01/27/14 12/16/16 hydroCHLOROthiazide 25 mg PO DAILY 01/27/14 12/16/16 [Hydrochlorothiazide] Cyclobenzaprine [Flexeril] 10 mg PO TID PRN 11/26/16 12/16/16 Azithromycin [Zithromax] 250 mg PO DAILY #4 tablet 05/10/17 Gabapentin [Neurontin] 200 mg PO 05/10/17 - Allergies Allergies/Adverse Reactions: Allergies Allergy/AdvReac Type Severity Reaction Status Date / Time Penicillins AdvReac Intermediate Hives Verified 05/10/17 11:17 ciprofloxacin [From Cipro] AdvReac Edema Verified 05/10/17 11:17 ciprofloxacin HCl * AdvReac Edema Verified 05/10/17 11:17 [From Cipro] Sulfa (Sulfonamide AdvReac Hives Verified 05/10/17 11:17 Antibiotics) - Social History Does the pt smoke?: Yes Smoking Status: Current every day smoker Does the pt drink ETOH?: Yes Does the pt have substance abuse?: No Substance Use and Type: Marijuana - Immunizations Immunizations are current?: Yes PD ED PE NORMAL - Vitals Vital signs reviewed: Yes (Hypertensive) - General General: No acute distress, Well developed/nourished - HEENT HEENT: Atraumatic, PERRL, EOMI - Neck Neck: Supple, no meningeal sign - Cardiac Cardiac: No murmur, Other (Tachycardia to 100) - Respiratory Respiratory: No respiratory distress, Clear bilaterally - Abdomen Abdomen: Soft, Other (There is specific right lower quadrant tenderness with some guarding. There is not right upper or left lower quadrant tenderness there is no left upper quadrant tenderness.) - Back Back: No CVA TTP, No spinal TTP - Derm Derm: Normal color, Warm and dry, No rash - Extremities Extremities: No deformity, No edema - Neuro Neuro: No motor deficit, No sensory deficit Eye Opening: Spontaneous Motor: Obeys Commands Verbal: Oriented GCS Score: 15 - Psych Psych: Normal mood Results - Vitals Vitals: Vital Signs - 24 hr 05/10/17 05/10/17 05/10/17 11:12 12:15 13:26 Temperature 35.7 C L Heart Rate 87 66 69 Respiratory 17 16 18 Rate Blood Pressure 127/92 H 165/84 H 132/83 H O2 Saturation 100 100 98 05/10/17 05/10/17 05/10/17 14:30 15:00 15:30 Temperature Heart Rate 72 69 78 Respiratory 18 16 16 Rate Blood Pressure 119/65 122/71 116/67 O2 Saturation 96 95 95 Oxygen O2 Source Room air - Labs Labs: Laboratory Tests 05/10/17 05/10/17 05/10/17 12:11 12:11 12:11 WBC 7.6 RBC 4.69 Hgb 14.9 Hct 43.3 MCV 92.4 MCH 31.7 H MCHC 34.3 RDW 14.0 Plt Count 286 MPV 8.2 Neut # 5.7 Lymph # 1.3 L [place] # 0.5 Eos # 0.1 Baso # 0.0 Absolute Nucleated RBC 0.00 Nucleated RBC % 0.0 Sodium 133 L Potassium 3.3 L Chloride 89 L Carbon Dioxide 29 Anion Gap 15.0 H BUN 23 H Creatinine 0.9 Estimated GFR (MDRD) 67 L Glucose 109 H Calcium 10.1 Total Bilirubin 0.5 AST 23 ALT 17 Alkaline Phosphatase 80 Troponin I < 0.04 Total Protein 8.4 H Albumin 4.8 Globulin 3.6 Albumin/Globulin Ratio 1.3 Lipase 29 Blood Type Antibody Screen 05/10/17 12:15 WBC RBC Hgb Hct MCV MCH MCHC RDW Plt Count MPV Neut # Lymph # [place] # Eos # Baso # Absolute Nucleated RBC Nucleated RBC % Sodium Potassium Chloride Carbon Dioxide Anion Gap BUN Creatinine Estimated GFR (MDRD) Glucose Calcium Total Bilirubin AST ALT Alkaline Phosphatase Troponin I Total Protein Albumin Globulin Albumin/Globulin Ratio Lipase Blood Type O POSITIVE Antibody Screen NEGATIVE - Rads (name of study) CT ab/pel with Radiology: Prelim report reviewed (Impression: 1. Findings could be compatible with descending and sigmoid nonspecific colitis, possibly infectious. 2. No other acute abnormality seen in the abdomen or pelvis. 3. Appendix appears surgically absent.), EMP read indepedently, See rad report PD MEDICAL DECISION MAKING - ED course Complexity details: reviewed old records, reviewed results, re-evaluated patient , considered differential, d/w patient, d/w family ED course: 47-year-old femaleStool has normal blood counts and she had pain associated with this in the right lower quadrant. A CT scan was obtained with contrast and this demonstrates what appears to be nonspecific colitis in the sigmoid colon possibly infectious. The patient's right lower quadrant abdominal pain is chronic and does not appear to have a rhyme or reason to its symptoms. I suspect 2 processes are separate and unrelated. Empiric antibiotic therapy for colitis is indicated and the patient is allergic to Cipro and sulfa and penicillin and here in the emergency department she is administered azithromycin 500 mg orally. Departure - Departure Disposition: Home, Self Care Clinical Impression: Acute hemorrhagic colitis Instructions: ED Hematochezia Stable, ED Gastroenteritis Bacterial Follow-Up: Cecy Smith ARNP [Primary Care Provider] - Prescriptions: Azithromycin [Zithromax] 250 mg PO DAILY #4 tablet
[2017-05-10] MEDS ORDERED: IOPAMIDOL-300 100 ML VIAL ONE (12:25)
[2017-05-10 12:30] LABS: BASOPHILS % (AUTO) 0.3 %; EOSINOPHILS # (AUTO) 0.1 10^3/uL (0.0-0.7); EOSINOPHILS % (AUTO) 0.8 %; HCT - HEMATOCRIT 43.3 % (37.0-47.0); HGB - HEMOGLOBIN 14.9 g/dL (12.0-16.0); LYMPHOCYTES # (AUTO) 1.3 10^3/uL (1.5-3.5); LYMPHOCYTES % (AUTO) 17.4 %; MEAN CORPUSCULAR HEMOGLOBIN 31.7 pg (27.0-31.0); MEAN CORPUSCULAR HGB CONC 34.3 g/dL (32.0-36.0); MEAN CORPUSCULAR VOLUME 92.4 fL (81.0-99.0); MEAN PLATELET VOLUME 8.2 fL (7.9-10.8); MONOCYTES # (AUTO) 0.5 10^3/uL (0.0-1.0); MONOCYTES % (AUTO) 6.5 %; NEUTROPHILS # (AUTO) 5.7 10^3/uL (1.5-6.6); RED BLOOD COUNT 4.69 10^6/uL (4.20-5.40); UNCORRECTED WHITE BLOOD COUNT 7.6 x10^3/uL; WHITE BLOOD COUNT 7.6 x10^3/uL (4.8-10.8)
[2017-05-10 12:36] LABS: ALBUMIN/GLOBULIN RATIO 1.3 (1.0-2.2); BILIRUBIN,TOTAL 0.5 mg/dL (0.2-1.0); CALCIUM 10.1 mg/dL (8.5-10.3); CREATININE 0.9 mg/dL (0.4-1.0); POTASSIUM 3.3 mmol/L (3.5-5.0); TOTAL PROTEIN 8.4 g/dL (6.7-8.2)
[2017-05-10] MEDS ORDERED: IOPAMIDOL-300 100 ML VIAL IVP ONE (12:46)
--- NOTE | 2017-05-10 13:16 | CT Preliminary Report ---
Exam: CT ABDOMEN/PELVIS W/ IMPRESSION: 1. Findings could be compatible with descending and sigmoid nonspecific colitis, possibly infectious. 2. No other acute abnormality seen in the abdomen or pelvis. 3. Appendix appears surgically absent [facility] SITE ID: [id number]
--- NOTE | 2017-05-10 13:19 | CT Report ---
EXAM: CT ABDOMEN AND PELVIS EXAM DATE: 05/10/2017 12:46 PM. CLINICAL HISTORY: RLQ pain chronic and GI bleeding today. COMPARISONS: 12/16/2016. TECHNIQUE: Routine helical CT imaging was performed through the abdomen and pelvis. IV contrast: 100M L OF [place] 300. Enteric contrast: No. Reconstructions: Coronal and sagittal. In accordance with CT protocol optimization, one or more of the following dose reduction techniques w ere utilized for this exam: automated exposure control, adjustment of mA and/or KV based on patient s ize, or use of iterative reconstructive technique. FINDINGS: Lung Bases: Unremarkable. Liver: Normal. No masses. Gallbladder/Bile Ducts: Unremarkable. Spleen: Normal. Pancreas: Normal. Adrenal Glands: Normal. Kidneys: Normal. No masses or hydronephrosis. Peritoneal Cavity/Bowel: No evidence for pneumoperitoneum or ascites. Normal caliber bowel loops with out signs of obstruction. No enlarged intraperitoneal or retroperitoneal lymph nodes. Wall thickening with mucosal hyperenhancement and mild hyperemia affecting the descending and sigmoid colon is ariana tible with nonspecific colitis. Appendix is surgically absent with cecal staple line evident. Pelvic Organs: Normal. The bladder and visualized pelvic organs are within normal limits. Vasculature: No aneurysms or other significant abnormality. Bones: No significant abnormality. Other: None. IMPRESSION: 1. Findings could be compatible with descending and sigmoid nonspecific colitis, possibly infectious. 2. No other acute abnormality seen in the abdomen or pelvis. 3. Appendix appears surgically absent [facility] Referring Provider Line: [phone] SITE ID: [id number]
[2017-05-10] MEDS ORDERED: POTASSIUM BICARB 25 MEQ TABLET PO STA (13:38)
[2017-05-10] MEDS ORDERED: HYDROmorphone 1 MG/ML SYRINGE IVP STA (14:30)
[2017-05-10] MEDS ORDERED: ONDANSETRON 4 MG/2 ML VIAL IVP STA (14:31)
[2017-05-10] MEDS ORDERED: AZITHROMYCIN 250 MG TABLET PO STA (16:36)
[2017-05-10 16:45] VITALS: BP 128/90
== END 2017-05-10 16:51 | disposition home or self-care (01) ==
LOC: ED 11:08
DX: K52.9 Noninfective gastroenteritis and colitis, unspecified (principal); K21.9 Gastro-esophageal reflux disease without esophagitis; Z86.010 Personal history of colon polyps; F17.200 Nicotine dependence, unspecified, uncomplicated
CPT/HCPCS: 36415; 74177; 80053; 83690; 84484; 85025; 86850; 86900; 86901; 96361; 96374; 99284; A9270; J1170; Q9967

== ENCOUNTER 2017-05-17 11:00 | Outpatient (CLI) | payer MEDICAID | END 2017-05-17 11:01 | disposition home or self-care (01) | LOC: LAB.R 11:00 | PROVIDERS: ATTEND Nurse Practitioner Family | DX: K52.9 Noninfective gastroenteritis and colitis, unspecified (principal); R19.7 Diarrhea, unspecified | CPT/HCPCS: 87045; 87046; 87177; 87209; 87493 ==

== ENCOUNTER 2017-06-10 06:22 | Day surgery (SDC) | payer MEDICAID ==
[2017-06-10] MEDS ORDERED: LACTATED RINGERS 1,000 ML IV ONE (06:30)
[2017-06-10] MEDS ORDERED: fentaNYL 100 MCG/2 ML VIAL IVP ONE (07:35)
[2017-06-10] MEDS ORDERED: MIDAZOLAM 2 MG/2 ML VIAL IVP ONE (07:35)
[2017-06-10] MEDS ORDERED: BENZOCAINE/TETRACAINE/BUTAMBEN SPRAY 56 GM TOP ONE (07:45)
[2017-06-10 09:30] VITALS: BP 132/87
== END 2017-06-10 06:23 | disposition home or self-care (01) ==
LOC: SDS 06:22
PROVIDERS: ATTEND Surgery
PROC: 0DBE8ZX Excision of Large Intestine, Via Natural or Artificial Opening Endoscopic, Diagnostic (ICD-10-PCS; 2017-06-10)
PROC: 0DB98ZX Excision of Duodenum, Via Natural or Artificial Opening Endoscopic, Diagnostic (ICD-10-PCS; principal; 2017-06-10 07:30)
PROC: 0DB48ZX Excision of Esophagogastric Junction, Via Natural or Artificial Opening Endoscopic, Diagnostic (ICD-10-PCS; 2017-06-10 07:30)
DX: K22.70 Barrett's esophagus without dysplasia (principal); K44.9 Diaphragmatic hernia without obstruction or gangrene; R19.7 Diarrhea, unspecified; K92.1 Melena; K64.8 Other hemorrhoids; Z86.010 Personal history of colon polyps; F17.210 Nicotine dependence, cigarettes, uncomplicated
CPT/HCPCS: 43239; 45380; A9270; J7120; 88305

== ENCOUNTER 2017-06-17 15:07 | Outpatient (CLI) | payer MEDICAID ==
--- NOTE | 2017-06-18 10:06 | Ultrasound Report ---
DATE OF SERVICE: 06/17/2017 LIMITED PELVIC ULTRASOUND: 06/17/2017 CLINICAL INDICATION: Right lower quadrant/right pelvic pain. 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 FINDINGS: Ultrasound of the region of pain identified by the patient was performed. There was no evidence of hernia at rest or with Valsalva. No discrete solid or cystic mass is appreciated. IMPRESSION: NO EVIDENCE OF HERNIA IN THE REGION OF PAIN IDENTIFIED BY THE PATIENT. TD: 06/18/2017 11:04
== END 2017-06-17 15:08 | disposition home or self-care (01) ==
LOC: DI 15:07
PROVIDERS: ATTEND Nurse Practitioner Family
DX: Z87.898 Personal history of other specified conditions (principal)
CPT/HCPCS: 76857

== ENCOUNTER 2017-08-24 17:11 | Emergency (ER) | payer MEDICAID ==
--- NOTE | 2017-08-24 17:51 | ED Physician Documentation ---
History of Present Illness - Stated complaint Stated Complaint: MED REACTION - Chief complaint Chief Complaint: Allergic Rx - History obtained from History obtained from: Patient - History of Present Illness Timing: Other (Started clarithromycin a couple of weeks ago for sinusitis. Missed a few days. Last night started with throat hoarseness and chest tightness. She thinks probably a rxn to the abx. Still there this AM. Used her epipen and went back to bed this morning. Feeling better now.) - Treatment prior to arrival Treatment prior to arrival: Prior to being on the clarithromycin she took Augmentin for 5 days about a month ago. She has a listed allergy to penicillin, but she says that was a childhood allergy and she had no problems with the Augmentin and she did get better with the Augmentin but feels like the course was not long enough. Review of Systems Constitutional: reports: Chills, Sweats. denies: Fever Nose: reports: Rhinorrhea / runny nose, Congestion Cardiac: reports: Chest pain / pressure. 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 - Present Medications Home Medications: Ambulatory Orders Medication Instructions Recorded Confirmed hydroCHLOROthiazide 25 mg PO DAILY 01/27/14 06/10/17 [Hydrochlorothiazide] Cyclobenzaprine [Flexeril] 10 mg PO TID PRN 11/26/16 06/10/17 raNITIdine [Zantac] 150 mg PO BID 06/09/17 06/10/17 Amox/Clav 875/125 [Augmentin] 1 each PO Q12H 14 Days #28 tablet 08/24/17 Ondansetron HCl [Zofran] 4 mg PO Q6H PRN #10 tablet 08/24/17 - Allergies Allergies/Adverse Reactions: Allergies Allergy/AdvReac Type Severity Reaction Status Date / Time Penicillins AdvReac Intermediate Hives Verified 05/10/17 11:17 ciprofloxacin [From Cipro] AdvReac Edema Verified 05/10/17 11:17 ciprofloxacin HCl * AdvReac Edema Verified 05/10/17 11:17 [From Cipro] Sulfa (Sulfonamide AdvReac Hives Verified 05/10/17 11:17 Antibiotics) - Social History Does the pt smoke?: Yes Smoking Status: Current every day smoker Does the pt drink ETOH?: Yes Does the pt have substance abuse?: No - Immunizations Immunizations are current?: Yes PD ED PE NORMAL - Vitals Vital signs reviewed: Yes - General General: Alert and oriented X 3, No acute distress - HEENT HEENT: PERRL, EOMI, Pharynx benign, Other (TTP B max sinus) - Neck Neck: Supple, no meningeal sign, No bony TTP - Cardiac Cardiac: RRR, No murmur - Respiratory Respiratory: No respiratory distress, Clear bilaterally - Derm Derm: No rash - Neuro Neuro: Alert and oriented X 3, Normal speech - Psych Psych: Normal mood, Normal affect Results - Vitals Vitals: Vital Signs - 24 hr 08/24/17 17:15 Temperature 36.5 C Heart Rate 98 Respiratory 16 Rate Blood Pressure 153/86 H O2 Saturation 100 Oxygen O2 Source Room air - EKG (time done) 1726 Rate: Rate (enter#) (89) Rhythm: NSR [place]: Normal Intervals: Normal PA QRS: Normal Ischemia: Normal ST segments Computer interpretation: Agree with computer PD MEDICAL DECISION MAKING - ED course ED course: 47-year-old woman undergoing treatment for sinusitis presents with side effects related to clarithromycin use, no evidence of allergic reaction on history or physical examination. We will switch over to Augmentin noting that she has taken it before without issue despite the listed penicillin allergy. Departure - Departure Disposition: 01 Home, Self Care Clinical Impression: Sinusitis Qualifiers: Sinusitis location: maxillary Chronicity: chronic Qualified Code(s): J32.0 - Chronic maxillary sinusitis Medication side effect Qualifiers: Encounter type: initial encounter Qualified Code(s): T88.7XXA - Unspecified adverse effect of drug or medicament, initial encounter Condition: Good Record reviewed to determine appropriate education?: Yes Instructions: ED Sinusitis Abx Tx Prescriptions: Amox/Clav 875/125 [Augmentin] 1 each PO Q12H 14 Days #28 tablet Ondansetron HCl [Zofran] 4 mg PO Q6H PRN #10 tablet PRN Reason: Nausea / Vomiting Comments: Call your doctor to arrange a follow-up appointment, make the next available appointment. In the interim, return anytime if worse or if new symptoms develop. Your blood pressure was elevated today on check into the emergency department. This does not mean that you have hypertension, it is a common phenomenon to come to the emergency department and have elevated blood pressure. I recommend that you see your primary care physician within the week to have it rechecked when you are feeling better.
[2017-08-24] MEDS ORDERED: ONDANSETRON ODT 4 MG TABLET TL STA (18:00)
[2017-08-24] MEDS ORDERED: AMOX/CLAV 875 MG/125 MG TABLET PO STA (18:00)
[2017-08-24 18:45] VITALS: BP 135/91
== END 2017-08-24 18:44 | disposition home or self-care (01) ==
LOC: ED 17:11
DX: J32.0 Chronic maxillary sinusitis (principal); T36.3X5A Adverse effect of macrolides, initial encounter; R03.0 Elevated blood-pressure reading, without diagnosis of hypertension; F17.200 Nicotine dependence, unspecified, uncomplicated
CPT/HCPCS: 93005; 99282; 99283; A9270; Q0162

== ENCOUNTER 2017-09-03 08:00 | Outpatient (CLI) | payer MEDICAID | END 2017-09-03 23:59 | LOC: LAB.R 08:00 | PROVIDERS: ATTEND Nurse Practitioner Family | DX: R10.2 Pelvic and perineal pain (principal) | CPT/HCPCS: 87070 ==

== ENCOUNTER 2017-11-13 14:54 | Emergency (ER) | payer MEDICAID ==
--- NOTE | 2017-11-13 15:06 | ED Physician Documentation ---
PD HPI UPPER EXT INJURY - Stated complaint Stated Complaint: R SHOULDER PX - Chief complaint Chief Complaint: Ext Problem - History obtained from History obtained from: Patient - History of Present Illness Location: Right, Shoulder Type of injury: Twist (throwing ball to her dog and shoulder felt pain and weakness, pain with working. Has appt tomorrow to see PCP and get MRI likely.) Timing - onset: How many weeks ago (1) Timing - duration: Weeks Timing - details: Abrupt onset, Still present Similar symptoms before: No diagnosis (has had pain right shoudler presumed rotator cuff injury but was improving and using shoulder pretty well. 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 - Present Medications Home Medications: Ambulatory Orders Medication Instructions Recorded Confirmed hydroCHLOROthiazide 25 mg PO DAILY 01/27/14 06/10/17 [Hydrochlorothiazide] Cyclobenzaprine [Flexeril] 10 mg PO TID PRN 11/26/16 06/10/17 Dexamethasone [Decadron] 4 mg PO DAILY #5 tablet 11/13/17 Oxycodone HCl/Acetaminophen 1 each PO Q6H PRN #15 tablet 11/13/17 [Percocet 5-325 mg Tablet] Pantoprazole [Protonix] 40 mg PO 11/13/17 - Allergies Allergies/Adverse Reactions: Allergies Allergy/AdvReac Type Severity Reaction Status Date / Time Penicillins AdvReac Intermediate Hives Verified 11/13/17 15:00 ciprofloxacin [From Cipro] AdvReac Edema Verified 11/13/17 15:00 ciprofloxacin HCl * AdvReac Edema Verified 11/13/17 15:00 [From Cipro] Sulfa (Sulfonamide AdvReac Hives Verified 11/13/17 15:00 Antibiotics) - Social History Does the pt smoke?: Yes Smoking Status: Current every day smoker Does the pt drink ETOH?: Yes Does the pt have substance abuse?: No - Immunizations Immunizations are current?: Yes PD ED PE NORMAL - Vitals Vital signs reviewed: Yes - General General: Alert and oriented X 3, Well developed/nourished, Other (guarding ROM right shoulder to her side.) - HEENT HEENT: Pharynx benign - Neck Neck: Supple, no meningeal sign, No adenopathy - Cardiac Cardiac: No: RRR, No murmur - Respiratory Respiratory: No: Clear bilaterally Results - Vitals Vitals: Oxygen O2 Source Room air PD MEDICAL DECISION MAKING - ED course Complexity details: considered differential (sounds likely rotator cuff injury/ tear. ), d/w patient - Sepsis Event Vital Signs: Oxygen O2 Source Room air Departure - Departure Disposition: 01 Home, Self Care Clinical Impression: Right shoulder injury Qualifiers: Encounter type: initial encounter Qualified Code(s): S49.91XA - Unspecified injury of right shoulder and upper arm, initial encounter Rotator cuff injury Qualifiers: Encounter type: initial encounter Laterality: right Qualified Code(s): S46.001A - Unspecified injury of muscle(s) and tendon(s) of the rotator cuff of right shoulder, initial encounter Condition: Stable Record reviewed to determine appropriate education?: Yes Instructions: ED Torn Rotator Cuff Follow-Up: Cecy Smith ARNP [Primary Care Provider] - [facility] [Provider Group] Prescriptions: Dexamethasone [Decadron] 4 mg PO DAILY #5 tablet Oxycodone HCl/Acetaminophen [Percocet 5-325 mg Tablet] 1 each PO Q6H PRN #15 tablet PRN Reason: Pain Comments: Use the sling to help with the comfort of the shoulder periodically through the day. However have good range of motion dependently such as drawing circles and passive range of motion several times a day so does not get stiff. Continue some ibuprofen or naproxen 2-3 times a day. Add Decadron steroid daily for several days. Tylenol or Percocet if needed for pain. Follow-up with [facility] orthopedics. This Sounds likely to be a torn rotator cuff. However could be part of the cushioning in the joint called the glenoid or labrum. Follow-up with orthopedics. Discharge Date/Time: 11/13/17 16:37
[2017-11-13 15:10] VITALS: BP 139/86
--- NOTE | 2017-11-13 16:08 | XRAY Report ---
Procedure Date: 11/13/2017 Accession Number: [id number] / [id number] Procedure: XR - Shoulder 3 View RT CPT Code: FULL RESULT: EXAM: RIGHT SHOULDER RADIOGRAPHY EXAM DATE: 11/13/2017 03:48 PM. CLINICAL HISTORY: Shoulder pain onset with throwing stick. COMPARISON: SHOULDER 3 VIEW RT 04/06/2015. TECHNIQUE: 3 views. FINDINGS: Bones: Normal. No fracture or bone lesion. Joints: Mild acromioclavicular degenerative joint disease with mild osteophytes. The glenohumeral joint appears unremarkable. No subluxation. Soft tissues: The visualized hemithorax is unremarkable. No soft tissue swelling. IMPRESSION: Mild acromioclavicular degenerative joint disease. No acute findings. [facility]
== END 2017-11-13 16:37 | disposition home or self-care (01) ==
LOC: ED 14:54
DX: S49.91XA Unspecified injury of right shoulder and upper arm, initial encounter (principal); S46.001A Unspecified injury of muscle(s) and tendon(s) of the rotator cuff of right shoulder, initial encounter; F17.200 Nicotine dependence, unspecified, uncomplicated; X50.1XXA Overexertion from prolonged static or awkward postures, initial encounter; Y93.89 Activity, other specified
CPT/HCPCS: 99283

== ENCOUNTER 2017-12-17 08:41 | Outpatient (CLI) | payer MEDICAID ==
--- NOTE | 2017-12-17 16:10 | MRI Report ---
Procedure Date: 12/17/2017 Accession Number: [id number] / [id number] Procedure: MRI - Shoulder RT W/O CPT Code: FULL RESULT: EXAM: RIGHT SHOULDER MRI WITHOUT CONTRAST EXAM DATE: 12/17/2017 09:45 AM. CLINICAL HISTORY: Right anterior shoulder pain. COMPARISON: SHOULDER 3 VIEW RT 11/13/2017. TECHNIQUE: Multiplanar, multisequence T1-weighted and fluid-sensitive sequences of the shoulder without contrast. Other: None. FINDINGS: Acromioclavicular Region: The acromion is type II. Moderate acromioclavicular joint osteoarthritis. The inferior surface of the acromioclavicular joint mildly indents the bursal surface of the supraspinatus muscle-tendon unit. The coracoacromial and coracoclavicular ligaments are intact. Small amount of fluid at the subacromial-subdeltoid bursa. Glenohumeral Region: No subluxation. No effusion or loose bodies. The articular cartilage is unremarkable. The glenohumeral ligaments and joint capsule are unremarkable. Bone Marrow: No fracture, marrow edema or bone lesions. Labrum: The labrum is unremarkable on this nonarthrographic study. Musculature/Rotator Cuff: There is a 6 x 5 mm partial-thickness intrasubstance insertional tear at the distal end of the supraspinatus tendon which involves approximately 60% of the tendon thickness at this location. There is tendinosis at the remaining supraspinatus tendon and at the infraspinatus tendon. The teres minor tendon is unremarkable. There is distal subscapularis tendinosis. No edema or fatty atrophy. Biceps Tendon: There is proximal long head biceps tendinosis. Other: The subcutaneous tissues are unremarkable. IMPRESSION: 1. A 6 x 5 mm moderate to high-grade partial-thickness intrasubstance insertional tear at the distal end of the supraspinatus tendon. There is also supraspinatus, infraspinatus, and distal subscapularis tendinosis. 2. Proximal long head biceps tendinosis. 3. Moderate acromioclavicular joint osteoarthritis. Small amount of fluid at the subacromial-subdeltoid bursa. [facility] MUSCULOSKELETAL RADIOLOGY SECTION
== END 2017-12-17 08:42 | disposition home or self-care (01) ==
LOC: DI 08:41
PROVIDERS: ATTEND Physician Assistant
DX: M75.101 Unspecified rotator cuff tear or rupture of right shoulder, not specified as traumatic (principal); M67.921 Unspecified disorder of synovium and tendon, right upper arm; M17.11 Unilateral primary osteoarthritis, right knee

== ENCOUNTER 2018-02-02 08:26 | Outpatient (CLI) | payer MEDICAID ==
[2018-02-02 17:58] LABS: ALBUMIN 4.2 g/dL (3.2-5.5); ALBUMIN/GLOBULIN RATIO 1.3 (1.0-2.2); BILIRUBIN,TOTAL 0.5 mg/dL (0.2-1.0); CREATININE 0.7 mg/dL (0.4-1.0); TOTAL PROTEIN 7.5 g/dL (6.7-8.2)
== END 2018-02-02 08:27 | disposition home or self-care (01) ==
LOC: RT.S 08:26
PROVIDERS: ATTEND Otolaryngology
DX: I10 Essential (primary) hypertension (principal)
CPT/HCPCS: 36415; 80053; 93005

== ENCOUNTER 2018-04-02 15:32 | Outpatient (CLI) | payer MEDICAID ==
--- NOTE | 2018-04-03 11:56 | Mammography Report ---
Reason: ANNUAL SCREENING Procedure Date: 04/02/2018 Accession Number: [id number] / [id number] Procedure: AUGUSTO - Screening Mammo w/Juan Manuel CPT Code: FULL RESULT: EXAM: Screening Mammo w/Juan Manuel DATE: 04/02/2018 4:12 PM CLINICAL HISTORY: 48-year-old female with family history of breast cancer in the grandmother at age 58 for screening. TECHNIQUE: Bilateral CC and MLO views were obtained. A left exaggerated CC view was obtained. COMPARISON: 09/09/2012, 02/21/2009, 02/09/2009. FINDINGS: The breasts demonstrate scattered fibroglandular densities bilaterally. No suspicious masses, clustered microcalcifications, or regions of architectural distortion are identified. IMPRESSION: Negative examination RECOMMENDATION: Routine annual screening unless otherwise clinically indicated. BIRADS CATEGORY 1: Negative STANDARD QUALIFYING STATEMENTS: 1. This examination was not reviewed with the aid of Computer-Aided Detection (CAD). 2. A negative or benign imaging report should not delay biopsy if clinically suspicious findings are present. Consider surgical consultation if warranted. More than 5% of cancers are not identified by imaging. 3. Dense breasts may obscure an underlying neoplasm. 4. This examination was reviewed without the aid of 3D breast imaging (tomosynthesis).
== END 2018-04-02 15:33 | disposition home or self-care (01) ==
LOC: DI 15:32
PROVIDERS: ATTEND Nurse Practitioner Family
DX: Z12.31 Encounter for screening mammogram for malignant neoplasm of breast (principal); Z80.3 Family history of malignant neoplasm of breast
CPT/HCPCS: 77063; 77067

== ENCOUNTER 2018-05-09 14:54 | Outpatient (CLI) | payer MEDICAID ==
--- NOTE | 2018-05-09 18:11 | Ultrasound Report ---
Reason: THYROID NODULE,MOLD EXPOSURE,CHRONIC SINUSITIS Procedure Date: 05/09/2018 Accession Number: [id number] / [id number] Procedure: US - Head or Neck Soft Tissue CPT Code: FULL RESULT: EXAM: THYROID ULTRASOUND EXAM DATE: 05/09/2018 03:32 PM. CLINICAL HISTORY: Thyroid nodule. COMPARISON: THYROID 09/29/2009 11:23 AM. TECHNIQUE: Real time sonographic imaging of the thyroid was performed by the netting weaver. Multiple field representative static images were saved for review. FINDINGS: THYROID GLAND: Right Lobe: 5.9 x 1.9 x 2.0 cm, volume 11.7 cc. Normal background echotexture. Right Lobe Nodules: Multiple small hypoechoic solid nodules, the largest a heterogeneous hypoechoic nodule in the midportion/inferior pole measuring 1.1 x 1.0 x 1.0 cm, previously 0.6 x 0.4 x 0.5 cm. Left Lobe: 5.5 x 1.8 x 1.8 cm, volume 9.3 cc. Normal background echotexture. Left Lobe Nodules: Heterogeneous hypoechoic solid nodule, midportion, 0.7 x 0.3 x 0.5 cm, previously 0.4 x 0.2 x 0.4 cm. Isthmus: 0.3 cm AP. Isthmic Nodules: Hypoechoic solid nodule, 0.8 x 0.3 x 0.6 cm, previously 0.6 x 0.3 x 0.5 cm. LYMPH NODES: No adenopathy demonstrated in the central or lateral compartment. OTHER: None. IMPRESSION: Similar distribution of multiple small hypoechoic solid nodules, ANTIONETTE intermediate suspicion sonographic pattern. The dominant nodule in the right midportion/inferior pole has slightly increased in size compared to 2009 and now meets criteria for FNA. Management recommendations are based on 2015 [place] Management Guidelines for Adult Patients with Thyroid Nodules and Differentiated Thyroid Cancer. [facility]
--- NOTE | 2018-05-09 20:37 | XRAY Report ---
Reason: THYROID NODULE,MOLD EXPOSURE,CHRONIC SINUSITIS Procedure Date: 05/09/2018 Accession Number: [id number] / [id number] Procedure: XR - Chest 2 View X-Ray CPT Code: 06827 FULL RESULT: EXAM: CHEST RADIOGRAPHY EXAM DATE: 05/09/2018 03:48 PM. CLINICAL HISTORY: Shortness of breath and wheeze x1 year. History of mold exposure. COMPARISON: CHEST 2 VIEW PA/LAT 11/04/2015 1:41 PM. TECHNIQUE: 2 views. FINDINGS: Lungs/Pleura: Normal volumes. No focal opacities are evident. No pleural effusion or pneumothorax. Mediastinum: Normal cardiomediastinal contour. Other: The bones are unremarkable. IMPRESSION: Normal 2-view chest radiography. [facility]
== END 2018-05-09 14:55 | disposition home or self-care (01) ==
LOC: DI 14:54
PROVIDERS: ATTEND Nurse Practitioner
DX: E04.1 Nontoxic single thyroid nodule (principal); Z77.120 Contact with and (suspected) exposure to mold (toxic); J32.9 Chronic sinusitis, unspecified
CPT/HCPCS: 71046; 76536

== ENCOUNTER 2018-06-17 13:32 | Outpatient (CLI) | payer MEDICAID ==
[2018-06-17] MEDS ORDERED: BUFFERED LIDOCAINE 10 ML SYRINGE ONE (14:01)
[2018-06-17] MEDS ORDERED: BUFFERED LIDOCAINE 10 ML SYRINGE IU ONE (15:37)
--- NOTE | 2018-06-17 16:12 | Ultrasound Report ---
Reason: THYROID NODULE Procedure Date: 06/17/2018 Accession Number: [id number] / [id number] Procedure: US - FNA Bx w/US Gnd les CPT Code: 33260 FULL RESULT: EXAM: THYROID FINE NEEDLE ASPIRATION EXAM DATE: 06/17/2018 02:19 PM. CLINICAL HISTORY: Thyroid nodule. COMPARISON: None. TECHNIQUE: The risks, benefits, and alternatives of the procedure were discussed with the patient. All questions were answered. Written and verbal consent were obtained. A site was marked over the nodule in the right thyroid gland in question under live sonographic evaluation, then subsequently prepped and draped in a sterile manner. Local anesthesia was performed with 1% lidocaine. Directly visualized ultrasound-guided 22 gauge fine-needle aspirates/passes were performed through the right thyroid nodule in question, then passed to the volunteer services supervisor for preparation. Estimated blood loss was 0 mL. Sonographic images demonstrate needle placement within the right thyroid gland nodule in question. The patient appeared to tolerate the procedure well. Fluoroscopy Time: 0 minutes Number of Images: 21 FINDINGS IMPRESSION: Fine-needle aspirate of right thyroid gland nodule with samples submitted in CytoLyt as well as Thyroseq. [facility]
== END 2018-06-17 13:33 | disposition home or self-care (01) ==
LOC: DI 13:32
PROVIDERS: ATTEND Nurse Practitioner
DX: E04.1 Nontoxic single thyroid nodule (principal)
CPT/HCPCS: 10005

== ENCOUNTER 2018-08-01 09:05 | Outpatient (CLI) | payer MEDICAID ==
--- NOTE | 2018-08-01 14:43 | CT Report ---
Reason: CONTUSION OF UNSPECIFIED EYELID AND PERIOCULAR ARE Procedure Date: 08/01/2018 Accession Number: [id number] / [id number] Procedure: CT - HEAD WO CPT Code: FULL RESULT: EXAM: CT HEAD EXAM DATE: 08/01/2018 09:17 AM. CLINICAL HISTORY: Left periorbital contusion and headache COMPARISON: None. TECHNIQUE: Multiaxial CT images were obtained from the foramen magnum to the vertex. Reformats: Sagittal and coronal. IV contrast: None. In accordance with CT protocol optimization, one or more of the following dose reduction techniques were utilized for this exam: automated exposure control, adjustment of mA and/or KV based on patient size, or use of iterative reconstructive technique. FINDINGS: Parenchyma: No intraparenchymal hemorrhage. No evidence of mass, midline shift, or CT findings of infarction. Thorpe-white differentiation is distinct. Extraaxial Spaces: Normal for age. No subdural or epidural collections identified. Ventricles: Normal in size and position. Sinuses and Orbits: Imaged paranasal sinuses, orbits, and mastoids show no significant abnormality. Bones: No evidence of fracture or calvarial defect. Other: None. IMPRESSION: Normal head CT. [facility]
== END 2018-08-01 09:06 | disposition home or self-care (01) ==
LOC: DI 09:05
PROVIDERS: ATTEND Nurse Practitioner
DX: S00.10XA Contusion of unspecified eyelid and periocular area, initial encounter (principal); H11.30 Conjunctival hemorrhage, unspecified eye; W19.XXXA Unspecified fall, initial encounter
CPT/HCPCS: 70450

== ENCOUNTER 2018-08-14 13:11 | Outpatient (CLI) | payer MEDICAID ==
[2018-08-14 17:32] LABS: ALBUMIN 4.5 g/dL (3.2-5.5); ALBUMIN/GLOBULIN RATIO 1.3 (1.0-2.2); BILIRUBIN,TOTAL 0.6 mg/dL (0.2-1.0); CALCIUM 9.8 mg/dL (8.5-10.3); CREATININE 0.9 mg/dL (0.4-1.0); TOTAL PROTEIN 7.9 g/dL (6.7-8.2)
[2018-08-14 17:42] LABS: THYROID STIMULATING HORMONE 0.87 uIU/mL (0.34-5.60)
[2018-08-14 18:10] LABS: FOLLICLE STIMULATING HORMONE 71.76 mIU/mL
== END 2018-08-14 13:12 | disposition home or self-care (01) ==
LOC: LAB.F 13:11
PROVIDERS: ATTEND Nurse Practitioner
DX: N95.1 Menopausal and female climacteric states (principal); E04.1 Nontoxic single thyroid nodule
CPT/HCPCS: 36415; 80053; 83001; 84443

== ENCOUNTER 2019-02-09 19:19 | Emergency (ER) | payer MEDICAID ==
--- NOTE | 2019-02-09 20:31 | XRAY Report ---
Reason: cough with SOA Procedure Date: 02/09/2019 Accession Number: [id number] / [id number] Procedure: XR - Chest 2 View X-Ray CPT Code: 11652 FULL RESULT: EXAM: CHEST RADIOGRAPHY EXAM DATE: 02/09/2019 07:41 PM. CLINICAL HISTORY: Cough with SOA. COMPARISON: CHEST 2 VIEW 05/09/2018 3:40 PM. TECHNIQUE: 2 views. FINDINGS: Lungs/Pleura: No focal opacities evident. No pleural effusion. No pneumothorax. Normal volumes. Mediastinum: Heart and mediastinal contours are unremarkable. Other: None. IMPRESSION: Negative chest [facility]
[2019-02-09] MEDS ORDERED: predniSONE 20 MG TABLET PO STA (20:36)
[2019-02-09] MEDS ORDERED: DOXYCYCLINE 100 MG TABLET PO STA (20:36)
[2019-02-09] MEDS ORDERED: IPRATROPIUM/ALBUTEROL 3 ML NEB INH STA (20:36)
[2019-02-09] MEDS ORDERED: guaiFENesin/CODEINE 5 ML UDC PO STA (20:36)
--- NOTE | 2019-02-09 20:38 | ED Physician Documentation ---
PD HPI DYSPNEA - Stated complaint Stated Complaint: COUGHING,SOA - Chief complaint Chief Complaint: Resp - History obtained from History obtained from: Patient - History of Present Illness Timing - onset: Last night (49-year-old woman with benign past medical history presents with a day of productive cough and shortness of breath with some tactile fevers at home. No pedal edema or calf pain. 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 - Present Medications Home Medications: Ambulatory Orders Medication Instructions Recorded Confirmed hydroCHLOROthiazide 25 mg PO DAILY 01/27/14 06/10/17 [Hydrochlorothiazide] Cyclobenzaprine [Flexeril] 10 mg PO TID PRN 11/26/16 06/10/17 Oxycodone HCl/Acetaminophen 1 each PO Q6H PRN #15 tablet 11/13/17 [Percocet 5-325 mg Tablet] Pantoprazole [Protonix] 40 mg PO 11/13/17 dexAMETHasone [Decadron] 4 mg PO DAILY #5 tablet 11/13/17 Albuterol Sulf [Ventolin Hfa 1 - 2 puffs INH Q4HR PRN #1 inhaler 02/09/19 Inhaler] Doxycycline Hyclate 100 mg PO BID #14 capsule 02/09/19 Nicotine 14 mg Patch [Nicoderm] 1 each TOP Q24H #21 patch 02/09/19 Nicotine 7 mg Patch [Nicoderm] 1 each TOP Q24H #21 patch 02/09/19 guaiFENesin/CODEINE [Robitussin AC] 5 - 10 ml PO Q6H PRN #120 ml 02/09/19 predniSONE [Deltasone] 20 mg PO [id number] #21 tab 02/09/19 - Allergies Allergies/Adverse Reactions: Allergies Allergy/AdvReac Type Severity Reaction Status Date / Time Penicillins AdvReac Intermediate Hives Verified 02/09/19 19:27 ciprofloxacin [From Cipro] AdvReac Edema Verified 02/09/19 19:27 ciprofloxacin HCl * AdvReac Edema Verified 02/09/19 19:27 [From Cipro] Sulfa (Sulfonamide AdvReac Hives Verified 02/09/19 19:27 Antibiotics) - Social History Does the pt smoke?: Yes Smoking Status: Current every day smoker Does the pt drink ETOH?: Yes Does the pt have substance abuse?: No - Immunizations Immunizations are current?: Yes PD ED PE NORMAL - Vitals Vital signs reviewed: Yes - General General: Alert and oriented X 3, No acute distress - HEENT HEENT: PERRL, EOMI - Neck Neck: Supple, no meningeal sign, No bony TTP - Cardiac Cardiac: RRR, No murmur - Respiratory Respiratory: No respiratory distress, Other (Moderate expiratory wheezing without focal findings) - Abdomen Abdomen: Non tender - Extremities Extremities: No edema, No calf tenderness / cord - Neuro Neuro: Alert and oriented X 3, Normal speech Results - Vitals Vitals: Vital Signs - 24 hr 02/09/19 19:24 Temperature 36.5 C Heart Rate 81 Respiratory 24 Rate Blood Pressure 124/87 H O2 Saturation 96 Oxygen O2 Source Room air PD MEDICAL DECISION MAKING - ED course ED course: 49-year-old woman with respiratory infection in the setting of long-standing smoking. May be some underlying COPD. She is treated with a DuoNeb, antibiotics and steroids here. After a DuoNeb and steroids and antibiotics she was feeling much better and breathing easier. She requested prescriptions for nicotine patches which is not unreasonable. She was counseled to quit smoking. Departure - Departure Disposition: 01 Home, Self Care Clinical Impression: Bronchitis Dyspnea Qualifiers: Dyspnea type: shortness of breath Qualified Code(s): R06.02 - Shortness of breath; R06.00 - Dyspnea, unspecified; R06.01 - Orthopnea Condition: Good Record reviewed to determine appropriate education?: Yes Instructions: ED Bronchitis Asthmatic, ED Smoking Cessation Prescriptions: Albuterol Sulf [Ventolin Hfa Inhaler] 1 - 2 puffs INH Q4HR PRN #1 inhaler PRN Reason: Shortness Of Air/Wheezing Doxycycline Hyclate 100 mg PO BID #14 capsule guaiFENesin/CODEINE [Robitussin AC] 5 - 10 ml PO Q6H PRN #120 ml PRN Reason: Cough Nicotine 14 mg Patch [Nicoderm] 1 each TOP Q24H #21 patch Nicotine 7 mg Patch [Nicoderm] 1 each TOP Q24H #21 patch predniSONE [Deltasone] 20 mg PO [id number] #21 tab Comments: Call your doctor to arrange a follow-up appointment, make the next available appointment. In the interim, return anytime if worse or if new symptoms develop.
[2019-02-09 21:43] VITALS: BP 136/89
== END 2019-02-09 21:44 | disposition home or self-care (01) ==
LOC: ED 19:19
DX: J40 Bronchitis, not specified as acute or chronic (principal); F17.200 Nicotine dependence, unspecified, uncomplicated
CPT/HCPCS: 71046; 99283; A9270; J7512

== ENCOUNTER 2022-02-23 09:38 | Outpatient (CLI) | payer MEDICAID ==
[2022-02-28 10:09] LABS: OVA + PARASITE EXAM Final report (.)
== END 2022-02-23 23:59 | disposition home or self-care (01) ==
LOC: LAB.N 09:38
PROVIDERS: ATTEND Physician Assistant Medical
DX: B82.0 Intestinal helminthiasis, unspecified (principal)
CPT/HCPCS: 87177; 87209

== ENCOUNTER 2022-03-13 08:19 | Outpatient (CLI) | payer MEDICAID ==
[2022-03-14 07:10] LABS: ADENOVIRUS F 40/41 Not Detected (Not Detected); ASTROVIRUS Not Detected (Not Detected); C DIFFICILE TOXIN A/B Not Detected (Not Detected); CAMPYLOBACTER Not Detected (Not Detected); CRYPTOSPORIDIUM Not Detected (Not Detected); CYCLOSPORA CAYETANENSIS Not Detected (Not Detected); ENTAMOEBA HISTOLYTICA Not Detected (Not Detected); ENTEROAGGREGATIVE E COLI Not Detected (Not Detected); ENTEROPATHOGENIC E COLI Not Detected (Not Detected); ENTEROTOXIGENIC E COLI Not Detected (Not Detected); GIARDIA LAMBLIA Not Detected (Not Detected); NOROVIRUS GI/GII Not Detected (Not Detected); PLESIOMONAS SHIGELLOIDES Not Detected (Not Detected); ROTAVIRUS A Not Detected (Not Detected); SALMONELLA Not Detected (Not Detected); SAPOVIRUS Not Detected (Not Detected); SHIGA-TOXIN-PRODUCING E COLI Not Detected (Not Detected); SHIGELLA/ENTEROINVASIVE E COLI Not Detected (Not Detected); VIBRIO Not Detected (Not Detected); VIBRIO CHOLERAE Not Detected (Not Detected); YERSINIA ENTEROCOLITICA Not Detected (Not Detected)
[2022-03-15 15:08] LABS: GIARDIA LAMBLIA AG EIA Negative (Negative)
== END 2022-03-13 08:20 | disposition home or self-care (01) ==
LOC: LAB.R 08:19
PROVIDERS: ATTEND Physician Assistant
DX: K52.9 Noninfective gastroenteritis and colitis, unspecified (principal); R10.84 Generalized abdominal pain
CPT/HCPCS: 87177; 87329; 87507

== ENCOUNTER 2022-10-04 17:51 | Outpatient (CLI) | payer MEDICAID | END 2022-10-04 23:59 | disposition short-term general hospital (02) | LOC: EMS 17:51 | DX: R07.9 Chest pain, unspecified (principal); R11.0 Nausea; R06.02 Shortness of breath; M54.9 Dorsalgia, unspecified; R61 Generalized hyperhidrosis | CPT/HCPCS: A0425; A0427; A0999 ==

== ENCOUNTER 2022-10-22 16:47 | Outpatient (CLI) | payer MEDICAID | END 2022-10-22 16:48 | disposition home or self-care (01) | LOC: LAB 16:47 | PROVIDERS: ATTEND Internal Medicine Gastroenterology | DX: E87.1 Hypo-osmolality and hyponatremia (principal) | CPT/HCPCS: 36415; 82088 ==

== ENCOUNTER 2022-11-02 11:25 | Outpatient (CLI) | payer MEDICAID ==
[2022-11-02 19:15] LABS: CALCIUM 9.4 mg/dL (8.5-10.3); CREATININE 0.8 mg/dL (0.4-1.0); MAGNESIUM 2.3 mg/dL (1.7-2.8); POTASSIUM 4.5 mmol/L (3.5-5.0)
[2022-11-02 19:26] LABS: CORTISOL 5.3 ug/dL
[2022-11-02 19:30] LABS: THYROID STIMULATING HORMONE 0.4 uIU/mL (0.34-5.60)
== END 2022-11-02 11:26 | disposition home or self-care (01) ==
LOC: LAB.N 11:25
PROVIDERS: ATTEND Internal Medicine Gastroenterology
DX: E87.1 Hypo-osmolality and hyponatremia (principal)
CPT/HCPCS: 36415; 80048; 82533; 83735; 84443

== ENCOUNTER 2023-01-30 14:34 | Outpatient (CLI) | payer MEDICAID ==
[2023-01-30 17:46] LABS: CALCIUM 9.7 mg/dL (8.5-10.3); CREATININE 0.9 mg/dL (0.6-1.3); POTASSIUM 4.4 mmol/L (3.5-4.5)
== END 2023-01-30 14:35 | disposition home or self-care (01) ==
LOC: LAB.N 14:34
PROVIDERS: ATTEND Internal Medicine
DX: E87.1 Hypo-osmolality and hyponatremia (principal)
CPT/HCPCS: 36415; 80048

== ENCOUNTER 2023-04-25 15:24 | Outpatient (CLI) | payer MEDICAID ==
[2023-04-25 17:50] LABS: BASOPHILS % (AUTO) 0.8 %; HCT - HEMATOCRIT 40.1 % (37.0-47.0); HGB - HEMOGLOBIN 12.9 g/dL (12.0-16.0); LYMPHOCYTES # (AUTO) 1.7 10^3/uL (1.5-3.5); LYMPHOCYTES % (AUTO) 43.7 %; MEAN CORPUSCULAR HEMOGLOBIN 30.6 pg (27.0-31.0); MEAN CORPUSCULAR HGB CONC 32.2 g/dL (32.0-36.0); MEAN CORPUSCULAR VOLUME 95.2 fL (81.0-99.0); MEAN PLATELET VOLUME 11.9 fL (7.9-10.8); MONOCYTES # (AUTO) 0.3 10^3/uL (0.0-1.0); MONOCYTES % (AUTO) 6.4 %; NEUTROPHILS # (AUTO) 1.9 10^3/uL (1.5-6.6); NEUTROPHILS % (AUTO) 47.8 %; PLT - PLATELET COUNT 209 10^3/uL (130-450); RED BLOOD COUNT 4.21 10^6/uL (4.20-5.40); RED CELL DISTRIBUTION WIDTH 13.7 % (12.0-15.0); WHITE BLOOD COUNT 3.9 x10^3/uL (4.8-10.8)
[2023-04-25 18:09] LABS: BILIRUBIN,URINE NEGATIVE (NEGATIVE); GLUCOSE, URINE (UA) NEGATIVE (NEGATIVE); KETONES,URINE (UA) TRACE mg/dL (NEGATIVE); LEUKOCYTE ESTERASE, URINE MODERATE (NEGATIVE); NITRITE,URINE NEGATIVE (NEGATIVE); OCCULT BLOOD,URINE NEGATIVE (NEGATIVE); PH,URINE 6.5 PH (5.0-7.5); PROTEIN,URINE NEGATIVE (NEGATIVE); UROBILINOGEN,URINE 0.2 (NORMAL) E.U./dL (NORMAL)
[2023-04-25 18:20] LABS: CLARITY,URINE HAZY (CLEAR)
[2023-04-25 18:40] LABS: BACTERIA,URINE Moderate /HPF (None Seen); RBC,URINE 0-5 /HPF (0-5); SQUAMOUS EPITHELIAL CELL,UR MOD Squamous (<= Few)
[2023-04-25 18:43] LABS: ALBUMIN 4.9 g/dL (3.2-5.5); ALKALINE PHOSPHATASE 87 IU/L (42-121); ALT ALANINE AMINOTRANSFERASE 12 IU/L (10-60); AST ASPARTATE AMINOTRANSFERASE 20 IU/L (10-42); BILIRUBIN,TOTAL 0.7 mg/dL (0.2-1.0); BUN - BLOOD UREA NITROGEN 16 mg/dL (6-20); CALCIUM 10.3 mg/dL (8.5-10.3); CARBON DIOXIDE - CO2 29 mmol/L (21-32); CHLORIDE 98 mmol/L (101-111); CREATININE 0.9 mg/dL (0.6-1.3); CRP - C-REACTIVE PROTEIN < 0.5 mg/dL (<0.5); GFR - MDRD 65 (>89); GLUCOSE 119 mg/dL (74-104); MAGNESIUM 2.1 mg/dL (1.7-2.3); POTASSIUM 4.3 mmol/L (3.5-4.5); SODIUM 132 mmol/L (135-145); TOTAL PROTEIN 7.4 g/dL (6.4-8.9)
[2023-04-25 18:56] LABS: THYROID STIMULATING HORMONE 0.66 uIU/mL (0.34-5.60)
== END 2023-04-25 15:25 | disposition home or self-care (01) ==
LOC: LAB.N 15:24
PROVIDERS: ATTEND Internal Medicine Gastroenterology
DX: K59.01 Slow transit constipation (principal)
CPT/HCPCS: 36415; 80053; 81001; 83735; 84443; 85025; 86140